=== PATIENT | male | born 1930 | race Caucasian/White ===

== ENCOUNTER 2016-07-20 10:56 | Emergency (ER) | payer MEDICARE ==
[~2016-07-20] VITALS: Ht 177.8 cm; Wt 56.7 kg
[~2016-07-20 10:56] MED LIST: ALBU8.5H2 INH; APIX5TAB PO; APIX5TAB2 PO; ASP81CT PO; ATOR10TA66 PO; ATRV10T; CEPH500C PO; CEPH500T PO; FURO20TA4 PO; LEVO100T7 PO; LISI-552 PO; LISI20TA PO; LSNP10T; LVT.05T; LVT.1T PO; METO-270 PO; METO25TA PO; MUPI15CR TP; MUPI22OI2 TP; PRCD5U PO; ROSU5TAB PO
[2016-07-20 11:35] LABS: BASOPHILS % (AUTO) 0 % (0-10); EOSINOPHILS # (AUTO) 0.1 10^3/uL (0.0-0.3); EOSINOPHILS % (AUTO) 1 % (0-10); LYMPHOCYTES # (AUTO) 1.2 X 10^3 (1.0-4.0); LYMPHOCYTES % (AUTO) 17 % (12-44); MEAN CORPUSCULAR HEMOGLOBIN 33 PG (25-34); MEAN CORPUSCULAR HGB CONC 33 G/DL (32-36); MEAN CORPUSCULAR VOLUME 99 FL (80-99); MEAN PLATELET VOLUME 12.3 FL (7.4-10.4); MONOCYTES % (AUTO) 14 % (0-12); NEUTROPHILS # (AUTO) 4.9 X 10^3 (1.8-7.8); NEUTROPHILS % (AUTO) 68 % (42-75); PLATELET COUNT 139 10^3/uL (130-400); WHITE BLOOD COUNT 7.2 10^3/uL (4.3-11.0)
[2016-07-20 11:46] LABS: ALANINE AMINOTRANSFERASE 26 U/L (0-55); ALBUMIN 3.6 G/DL (3.2-4.5); ANION GAP 10 MMOL/L (5-14); ASPARTATE AMINO TRANSFERASE 38 U/L (5-34); BLOOD UREA NITROGEN 19 MG/DL (7-18); BUN/CREATININE RATIO 19; CALCIUM 8.6 MG/DL (8.5-10.1); CARBON DIOXIDE 26 MMOL/L (21-32); CHLORIDE 110 MMOL/L (98-107); CREATININE SERUM 0.99 MG/DL (0.60-1.30); GFR ESTIMATED > 60; GLUCOSE 109 MG/DL (70-105); POTASSIUM 3.2 MMOL/L (3.6-5.0); SODIUM 146 MMOL/L (135-145); TOTAL PROTEIN 6.5 G/DL (6.4-8.2); hs C REACTIVE PROTEIN 0.44 MG/DL (0.00-0.50)
--- NOTE | 2016-07-20 12:02 | Diagnostic Imaging Report ---
Portable upright radiograph of the chest. INDICATION: Slurred speech. Confusion. FINDINGS: There is moderate cardiomegaly with pulmonary vascular congestion. There is bilateral tiny pleural effusion and small infiltrate or atelectasis in the right lung base. There is a pacemaker with two leads seen. The sternotomy wires are noted. IMPRESSION: Cardiomegaly with pulmonary vascular congestion. There is small atelectasis or infiltrate in the right lung base. Dictated by: Dictated on workstation # [id number]
[2016-07-20] MEDS ORDERED: LEVOFLOXACIN 500 MG TAB (LEVAQUIN) PO STA (12:17)
--- NOTE | 2016-07-20 12:17 | ED Neurological Problem ---
General Chief Complaint: Neuro-Stroke Like Symptoms Stated Complaint: SLURRED SPEECH, CONGESTION Nursing Triage Note: STATES PT HAD SLURRED SPEECH YESTERDAY WHICH TODAY HAS RESOLVED. ALSO C/O CONFUSION LAST NOC AND THIS MORNING. PT HAS "RATTLE" IN CHEST AND INCREASED WEAKNESS. Nursing Sepsis Screen: No Definite Risk (BETTY PENNY) History of Present Illness Time seen by provider: 11:55 Initial Comments Patient presents for confusion last night, and chest congestion noted today. His reports slightly increased confusion comport compared to his normal status. He is hard of hearing and does not have his hearing aids with him at this time. Timing/Duration: 24 hours Severity: mild Associated Symptoms: confusion fatigueNo fever/chills, No loss of consciousness, No nausea/vomiting, No numbness in legs/feet, No paresthesia, No ringing in ears, No slurred speech, No tingling in legs/feet, trouble walkingNo vision changes, No weakness (BETTY PENNY) Allergies and Home Medications Allergies Coded Allergies: No Known Drug Allergies (Verified , 06/12/08) Home Medications Albuterol Sulfate 18 Gm Hfa.aer.ad 10Days 1-2 PUFF IH Q6H Prescribed by: BETTY PENNY on 07/20/16 1405 Apixaban 5 Mg Tablet 5 MG PO BID (Reported) Aspirin 81 Mg Chew 81 MG PO HS (Reported) Atorvastatin Calcium 10 Mg Tablet 10 MG PO DAILY (Reported) Cephalexin 500 Mg Capsule 7Days 500 MG PO Q8H (Reported) FILLED 06/20/16 #21 FOR A 7 DAY THERAPY Furosemide 20 Mg Tablet 20 MG PO DAILY (Reported) Levofloxacin 500 Mg Tablet #7 500 MG PO DAILY Prescribed by: BETTY PENNY on 07/20/16 1405 Levothyroxine Sodium 100 Mcg Tablet 100 MCG PO DAILY (Reported) Lisinopril 20 Mg Tablet 20 MG PO DAILY (Reported) Metoprolol Succinate 25 Mg Tab.er.24h 25 MG PO DAILY (Reported) Mupirocin 22 Gm Oint...g. TP BID (Reported) Constitutional: see HPI malaise weakness Eyes: No Symptoms Reported See HPI Ears, Nose, Mouth, Throat: no symptoms reported see HPI Respiratory: see HPI cough (Productive cough, clear sputum per ) other ( reports "rattling") Cardiovascular: no symptoms reported see HPI Gastrointestinal: no symptoms reported see HPI Genitourinary: no symptoms reported see HPI Musculoskeletal: no symptoms reported see HPI Skin: no symptoms reported Psychiatric/Neurological: No Symptoms Reported See HPI Endocrine: No Symptoms Reported See HPI Hematologic/Lymphatic: No Symptoms Reported See HPI (BETTY PENNY) All Other Systems Reviewed Negative Unless Noted: Yes (BETTY PENNY) Past Mwyotpl-Nhqdfh-Wfrgbs Hx Patient Social History Alcohol Use: Denies Use Recreational Drug Use: No Smoking Status: Current Everyday Smoker Type Used: Cigarettes Recent Foreign Travel: No Contact w/Someone Who Travel: No Recent Infectious Disease Expo: No Recent Hopitalizations: Yes Physical Abuse Screen: No Sexual Abuse: No (BETTY PENNY) Immunizations Up To Date Tetanus Booster (TDap): Unknown PED Vaccines UTD: Yes Date of Pneumonia Vaccine: Mar 05, 2012 Date of Influenza Vaccine: Mar 16, 2016 (BETTY PENNY) Seasonal Allergies Seasonal Allergies: No (BETTY PENNY) Surgeries HX Surgeries: Yes (HEART BYPASS) Surgeries: Cardiac, CABG, Defibrillator, Pacemaker (BETTY PENNY) Respiratory Hx Respiratory Disorders: No Respiratory Disorders: COPD, Emphysema (BETTY PENNY) Cardiovascular Hx Cardiac Disorders: Yes (Tricuspid Valve Dz, Hx PVT, RBBB, SA Dysfunction) Cardiac Disorders: Atrial Fibrillation, Cardiomyopathy, Coronary Artery Disease , Heart Attack, High Cholesterol, Hypertension, Valvular Heart Disease (BETTY PENNY) Neurological Hx Neurological Disorders: Yes (Carotid Artery Occlus with CVA) Neurological Disorders: Dementia, Stroke (BETTY PENNY) Reproductive System Hx Reproductive Disorders: No Sexually Transmitted Disease: No HIV/AIDS: No (BETTY PENNY) Genitourinary Hx Genitourinary Disorders: No (BETTY PENNY) Gastrointestinal Hx Gastrointestinal Disorders: Yes Gastrointestinal Disorders: Flores's Esophagus, Esophagitis (BETTY PENNY) Musculoskeletal Hx Musculoskeletal Disorders: Yes (MELANOMA ON HIS TOE STAGE 3 ABOUT @ 20 YRS AGO) Musculoskeletal Disorders: Arthritis (BETTY PENNY) Endocrine Hx Endocrine Disorders: Yes Endocrine Disorders: Hypothyroidsim (BETTY PENNY) HEENT HX ENT Disorders: Yes HEENT Disorders: Cataract Loss of Vision: Denies Hearing Impairment: Hard of Hearing, Bilateral Hearing Aide (BETTY PENNY) Cancer Hx Cancer: Yes Cancer: Melanoma (BETTY PENNY) Psychosocial Hx Psychiatric Problems: No (probable dementia) (BETTY PENNY) Integumentary HX Skin/Integumentary Disorder: No (BETTY PENNY) Blood Transfusions Hx Blood Disorders: No Adverse Reaction to a Blood Tr: No (BETTY PENNY) Reviewed Nursing Assessment Reviewed/Agree w Nursing PMH: Yes (BETTY PENNY) Family Medical History Family Medial History: Alcoholism G8 BROTHER Cardiovascular disease 19 FATHER, Onset:40's - 50 Diabetes mellitus 19 MOTHER, Onset:40's - 50 Hypercholesterolemia 19 MOTHER Hypertension 19 FATHER 19 MOTHER Myocardial infarction 19 FATHER No Family History of: AIDS Abdominal aortic aneurysm Mcewen's disease Alzheimer's disease Aphasia Arthritis Asthma Cancer of mouth Cataracts Colon cancer Completed stroke Congenital disease Congenital heart disease Coronary thrombosis Cystic fibrosis Deafness or hearing loss Dementia Drug abuse Dysphasia Fibrocystic disease of breast Gastroenteritis Glaucoma Headache disorder Infertility Kidney disease Neoplasm Not obtainable due to adoption Osteoporosis Parkinson's disease Prostate cancer Psychosocial problem Respiratory disorder Seizure disorder Severe allergy Thyroid disease Tuberculosis Visual disorder (BETTY PENNY) Family Medial History: Alcoholism G8 BROTHER Cardiovascular disease 19 FATHER, Onset:40's - 50 Diabetes mellitus 19 MOTHER, Onset:40's - 50 Hypercholesterolemia 19 MOTHER Hypertension 19 FATHER 19 MOTHER Myocardial infarction 19 FATHER No Family History of: AIDS Abdominal aortic aneurysm Mcewen's disease Alzheimer's disease Aphasia Arthritis Asthma Cancer of mouth Cataracts Colon cancer Completed stroke Congenital disease Congenital heart disease Coronary thrombosis Cystic fibrosis Deafness or hearing loss Dementia Drug abuse Dysphasia Fibrocystic disease of breast Gastroenteritis Glaucoma Headache disorder Infertility Kidney disease Neoplasm Not obtainable due to adoption Osteoporosis Parkinson's disease Prostate cancer Psychosocial problem Respiratory disorder Seizure disorder Severe allergy Thyroid disease Tuberculosis Visual disorder (GERALD SHOOK MD) Physical Exam Vital Signs Vital Sign - Last 12Hours 07/20/16 07/20/16 11:00 11:05 Temp 98.0 Pulse 74 Resp 16 B/P 135/85 Pulse Ox 94 O2 Delivery Room Air O2 Flow Rate 2 (GERALD SHOOK MD) Vital Signs Capillary Refill : Less Than 3 Seconds (BETTY PENNY) General Appearance: WD/WN no apparent distress HEENT: PERRL/EOMI normal ENT inspection TMs normal pharynx normal Neck: non-tender full range of motion normal inspectionNo lymphadenopathy (R) , No lymphadenopathy (L) Respiratory: chest non-tender no respiratory distress rhonchi (bilat throughout lung naidu, Right lower lobe greatest) Cardiovascular: normal peripheral pulsesNo no edema, no JVD no murmur extra beats other (2+ edema to bilat feet, none present in ankles) Gastrointestinal: normal bowel sounds non tender soft no organomegalyNo rebound, No tenderness Neurologic/Psychiatric: service tester II-XII nml as tested (Grossly intact, as able to assess, difficult to follow directions secondary to [place]) no motor/sensory deficits alert normal mood/affect Crainal Nerves: No normal hearing ([place], hearing aids not with patient), normal speech PERRLNo facial asymmetry, No facial droop, hearing deficit (R) hearing deficit (L)No tongue deviation to R, No tongue deviation to L Motor/Sensory: no motor deficit no sensory deficit no pronator drift Skin: normal color warm/dry Lymphatic: no adenopathy (ZOHAIB,BETTY INFORMATICS APPLICATION ANALYST) Progress/Results/Core Measures Results/Orders Lab Results Laboratory Tests Test 07/20/16 11:10 07/20/16 11:24 07/20/16 13:24 07/20/16 13:25 Range/Units Alanine Aminotransferase (ALT/SGPT) 26 0-55 U/L Albumin 3.6 3.2-4.5 G/DL Alkaline Phosphatase 64 40-136 U/L Anion Gap 10 5-14 MMOL/L Aspartate Amino Transf (AST/SGOT) 38 H 5-34 U/L B-Type Natriuretic Peptide 2100.0 H <100.0 PG/ML BUN/Creatinine Ratio 19 Basophils # (Auto) 0.0 0.0-0.1 10^3/uL Basophils (%) (Auto) 0 0-10 % Blood Urea Nitrogen 19 H 7-18 MG/DL C-Reactive Protein High Sensitivity 0.44 0.00-0.50 MG/DL Calcium Level 8.6 8.5-10.1 MG/DL Carbon Dioxide Level 26 21-32 MMOL/L Chloride Level 110 H 98-107 MMOL/L Creatinine 0.99 0.60-1.30 MG/DL Eosinophils # (Auto) 0.1 0.0-0.3 10^3/uL Eosinophils (%) (Auto) 1 0-10 % Estimat Glomerular Filtration Rate > 60 Glucose Level 109 H 70-105 MG/DL Hematocrit 42 40-54 % Hemoglobin 13.8 13.3-17.7 G/DL Lymphocytes # (Auto) 1.2 1.0-4.0 X 10^3 Lymphocytes (%) (Auto) 17 12-44 % Mean Corpuscular Hemoglobin 33 25-34 PG Mean Corpuscular Hemoglobin Concent 33 32-36 G/DL Mean Corpuscular Volume 99 80-99 FL Mean Platelet Volume 12.3 H 7.4-10.4 FL Monocytes # (Auto) 1.0 0.0-1.0 X 10^3 Monocytes (%) (Auto) 14 H 0-12 % Neutrophils # (Auto) 4.9 1.8-7.8 X 10^3 Neutrophils (%) (Auto) 68 42-75 % Platelet Count 139 130-400 10^3/uL Potassium Level 3.2 L 3.6-5.0 MMOL/L Red Blood Count 4.20 L 4.35-5.85 10^6/uL Red Cell Distribution Width 15.0 H 10.0-14.5 % Sodium Level 146 H 135-145 MMOL/L Total Bilirubin 1.0 0.1-1.0 MG/DL Total Protein 6.5 6.4-8.2 G/DL White Blood Count 7.2 4.3-11.0 10^3/uL Lactic Acid Level 2.1 *H 0.9 0.5-2.0 MMOL/L Urine Bacteria NEGATIVE /HPF Urine Bilirubin NEGATIVE NEGATIVE Urine Casts NONE /LPF Urine Clarity CLEAR Urine Color YELLOW Urine Crystals NONE /LPF Urine Culture Indicated NO Urine Glucose (UA) NEGATIVE NEGATIVE Urine Ketones NEGATIVE NEGATIVE Urine Leukocyte Esterase NEGATIVE NEGATIVE Urine Mucus NEGATIVE /LPF Urine Nitrite NEGATIVE NEGATIVE Urine Protein NEGATIVE NEGATIVE Urine RBC 0-2 /HPF Urine RBC (Auto) NEGATIVE NEGATIVE Urine Specific [place] 1.010 L 1.016-1.022 Urine Squamous Epithelial Cells RARE /HPF Urine Urobilinogen NORMAL NORMAL MG/DL Urine WBC NONE /HPF Urine pH 7 5-9 (GERALD SHOOK MD) Micro Results Microbiology 07/20/16 Blood Culture - Final, Complete No growth 07/20/16 Blood Culture - Final, Complete No growth 07/20/16 Influenza Types A,B Antigen (BOY) - Final, Complete (GERALD SHOOK MD) Vital Signs/I&O Vital Sign - Last 12Hours 07/20/16 07/20/16 07/20/16 07/20/16 11:00 11:05 13:39 14:25 Temp 98.0 Pulse 74 63 Resp 16 18 B/P 135/85 Pulse Ox 94 94 95 94 O2 Delivery Room Air Nasal Cannula Nasal Cannula O2 Flow Rate 2 2 (GERALD SHOOK MD) Blood Pressure Mean: 102 Progress Note : Time: 11:55 Progress Note Initial evaluation completed, labs ordered and CXR. 1300 Re-evaluation, continues to have rhonchi, will complete DuoNeb tx and re- evaluate. 1345 Lungs essentially unchanged after treatment. Discussed with the patient and his , he does not wish to be admitted to the hospital. His feel she can care for him appropriately at home. He is a smoker, and wishes return home or he can smoke, discussed this is a risk factor and potentially can make his pneumonia worse. He verbalized understanding. Discussed patient with Dr. Ying by phone, he will see him later this week for follow up and they will return to ED if s/s worsen. (BETTY PENNY) ECG Comment EKG : Rhythm: A Fib/Flutter Intervals: Normal, QT (492) Intervals ORSD 178; QT 492; QTc 531. [place] QRS -62; T 118 ECG Comparisson: Unchanged ECG Impression: Atrial Fibrillation (Ventricular paced complexes) Comment Reviewed with Dr. Su, agreed with interpretation. (BETTY PENNY) EKG : EKG Time: 11:09 Rate: 70 Comment 07/10/16. Atrial sensed-ventricular paced rhythm. Unchanged from previous. (GERALD SHOOK MD) Diagnostic Imaging Diagonstic Imaging: Xray Plain Films/CT/US/NM/MRI: chest Comments NAME: AFIA CALI [facility] REC#: [id number] PT STATUS: REG ER : 1930 PHYSICIAN: EMILY NANCE MD ADMIT DATE: 07/20/16/ER Draft Date of Exam:07/20/16 CHEST 1 VIEW, AP/PA ONLY Portable upright radiograph of the chest. INDICATION: Slurred speech. Confusion. FINDINGS: There is moderate cardiomegaly with pulmonary vascular congestion. There is bilateral tiny pleural effusion and small infiltrate or atelectasis in the right lung base. There is a pacemaker with two leads seen. The sternotomy wires are noted. IMPRESSION: Cardiomegaly with pulmonary vascular congestion. There is small atelectasis or infiltrate in the right lung base. Dictated on workstation # [id number] Dict: 07/20/16 1155 Trans: 07/20/16 1201 KB [id number] Interpreted by: SHANELLE DE PAZ MD Electronically signed by: Reviewed: Reviewed by Me (BETTY PENNY) Departure Impression Impression: Primary Impression: Pneumonia Qualified Code: J18.1 - Lobar pneumonia, unspecified organism Disposition: HOME, SELF-CARE Condition: Stable Departure-Patient Inst. Decision time for Depature: 13:50 (BETTY PENNY) Referrals: AARON YING DO (PCP/Family) Primary Care Physician Patient Instructions: Community-Acquired Pneumonia, Adult (DC) Scripts Albuterol Sulfate (Ventolin Hfa)18 Gm Hfa.aer.ad1-2 Puff IH Q6H Congestion 10 Days Ref 0 Prov:BETTY PENNY 07/20/16 Levofloxacin (Levaquin)500 Mg [id number] Mg PO DAILY #7 TAB Ref 0 Prov:BETTY PENNY 07/20/16 BETTY PENNY Jul 20, 2016 12:16 GERALD SHOOK MD Jul 26, 2016 08:01
[2016-07-20] MEDS ORDERED: RT-ALBUTEROL SULF 2.5 MG/3 ML PRE-MIX VIAL ONE (13:25)
[2016-07-20] MEDS ORDERED: RT-ALBUTEROL/IPRATROPIUM 3 ML (DUONEB) VIAL INH ONE (13:30)
[2016-07-20 13:33] LABS: BILIRUBIN,URINE NEGATIVE (NEGATIVE); KETONES,URINE NEGATIVE (NEGATIVE); LEUKOCYTE ESTERASE ,URINE NEGATIVE (NEGATIVE); NITRITE,URINE NEGATIVE (NEGATIVE); PH,URINE 7 (5-9); PROTEIN,URINE NEGATIVE (NEGATIVE); UROBILINOGEN,URINE NORMAL (NORMAL)
[2016-07-20 13:41] LABS: SQUAMOUS EPITHELIAL CELL,UR RARE /HPF
[2016-07-20] MEDS ORDERED: LEVO500T2 PO (14:05)
[2016-07-20] MEDS ORDERED: RT-ALBUINH IH (14:05)
[2016-07-20 14:25] VITALS: BP 147/85
== END 2016-07-20 14:25 | disposition home or self-care (01) ==
LOC: EDUNIT# 10:56 → ER 10:58
DX: J18.9 Pneumonia, unspecified organism (principal); I48.2 Chronic atrial fibrillation; I25.10 Atherosclerotic heart disease of native coronary artery without angina pectoris; I10 Essential (primary) hypertension; I51.7 Cardiomegaly; F17.210 Nicotine dependence, cigarettes, uncomplicated; Z79.01 Long term (current) use of anticoagulants; Z79.82 Long term (current) use of aspirin; Z79.899 Other long term (current) drug therapy; Z86.73 Personal history of transient ischemic attack (TIA), and cerebral infarction without residual deficits; Z95.810 Presence of automatic (implantable) cardiac defibrillator
CPT/HCPCS: 36415; 71010; 80053; 81000; 83605; 83880; 85025; 86141; 87040; 87804; 93005; 93041; 94640

== ENCOUNTER → 2016-07-27 | Outpatient (CLI) | payer MEDICARE ==
[~2016-07-27] MED LIST changes: +LEVO500T2 PO; +RT-ALBUINH IH
--- NOTE | 2016-07-27 12:26 | Diagnostic Imaging Report ---
INDICATION: Fall with trauma to the head. Soft tissue hematoma. TECHNIQUE: Routine non contrast-enhanced axial images were obtained from the skull base to the vertex. COMPARISON: 11/11/2015. FINDINGS: The ventricles and cortical sulci are diffusely prominent, compatible with age-related volume loss. There are confluent areas of abnormal, low attenuation in the periventricular white matter. This is consistent with chronic small vessel ischemic changes. There is no midline shift or mass-effect. No acute intra-axial hemorrhage is seen. There are no abnormal areas of increased or decreased density to suggest acute hemorrhage or edema. No extra-axial masses or collections are present. The bony calvarium is intact. The visualized paranasal sinuses are unremarkable. The mastoid air cells are clear. IMPRESSION: 1. No acute intracranial abnormality. No CT evidence of mass, acute infarct or intracranial hemorrhage. 2. Chronic small vessel ischemic changes in the deep white matter. Dictated by: Dictated on workstation # [id number]
== END ==
LOC: RAD 11:53
PROVIDERS: ATTEND Family Medicine
DX: S09.90XA Unspecified injury of head, initial encounter (principal); W18.00XA Striking against unspecified object with subsequent fall, initial encounter; Y99.8 Other external cause status; Z79.01 Long term (current) use of anticoagulants
CPT/HCPCS: 70450

== ENCOUNTER → 2016-07-27 | Outpatient (CLI) | payer MEDICARE ==
--- NOTE | 2016-07-27 09:48 | Diagnostic Imaging Report ---
Clinical indication: Patient with pneumonia. Exam: Chest x-ray PA and lateral views. Comparisons: Chest x-ray dated 07/20/2016. Findings: Lungs/pleura: Stable atelectasis versus infiltrate in the middle lobe/right lung base region. There are slightly hyperinflated lungs, increased retrosternal clear space, and flattened hemidiaphragms which can be seen with COPD changes. Minimal atelectasis or scarring in the left lung base. There is no pneumothorax. There is no pleural effusion. Mediastinum: Unremarkable. Pulmonary vasculature: There is stable mild pulmonary vascular congestion. Heart: Stable cardiomegaly. Again seen cardiac pacemaker/AICD overlying the chest. There are stable postoperative changes to the chest consistent with CABG with sternotomy wires and mediastinal clips. Bones/extrathoracic soft tissue: There are mildly hypertrophic degenerative osteophytes scattered throughout the thoracic spine. There is levoscoliosis of the lumbar spine. Impression: 1: Stable middle lobe/right lung base atelectasis versus infiltrate. 2: Mild left lung base atelectasis or scarring. 3: Stable cardiomegaly with mild pulmonary vascular congestion. 4: COPD lung changes. Dictated by: Dictated on workstation # [id number]
[2016-07-27 09:58] LABS: BASOPHILS % (AUTO) 0 % (0-10); EOSINOPHILS # (AUTO) 0.1 10^3/uL (0.0-0.3); EOSINOPHILS % (AUTO) 2 % (0-10); LYMPHOCYTES # (AUTO) 1.5 X 10^3 (1.0-4.0); LYMPHOCYTES % (AUTO) 20 % (12-44); MEAN CORPUSCULAR HEMOGLOBIN 34 PG (25-34); MEAN CORPUSCULAR HGB CONC 34 G/DL (32-36); MEAN CORPUSCULAR VOLUME 98 FL (80-99); MEAN PLATELET VOLUME 10.4 FL (7.4-10.4); MONOCYTES # (AUTO) 0.9 X 10^3 (0.0-1.0); MONOCYTES % (AUTO) 11 % (0-12); NEUTROPHILS # (AUTO) 5.1 X 10^3 (1.8-7.8); NEUTROPHILS % (AUTO) 67 % (42-75); PLATELET COUNT 178 10^3/uL (130-400); RED CELL DISTRIBUTION WIDTH 14.8 % (10.0-14.5); WHITE BLOOD COUNT 7.7 10^3/uL (4.3-11.0)
[2016-07-27 10:04] LABS: ANION GAP 9 MMOL/L (5-14); BLOOD UREA NITROGEN 16 MG/DL (7-18); BUN/CREATININE RATIO 15; CALCIUM 8.2 MG/DL (8.5-10.1); CARBON DIOXIDE 28 MMOL/L (21-32); CHLORIDE 106 MMOL/L (98-107); CREATININE SERUM 1.07 MG/DL (0.60-1.30); GFR ESTIMATED > 60; GLUCOSE 93 MG/DL (70-105); POTASSIUM 2.9 MMOL/L (3.6-5.0); SODIUM 143 MMOL/L (135-145)
== END ==
LOC: RAD 09:17
PROVIDERS: ATTEND Family Medicine
DX: J18.9 Pneumonia, unspecified organism (principal); I50.9 Heart failure, unspecified; S09.90XA Unspecified injury of head, initial encounter; W18.00XA Striking against unspecified object with subsequent fall, initial encounter; Y99.8 Other external cause status; Z79.01 Long term (current) use of anticoagulants
CPT/HCPCS: 36415; 71020; 80048; 83880; 85025

== ENCOUNTER → 2016-07-29 | Outpatient (CLI) | payer MEDICARE ==
[2016-07-29 16:01] LABS: CALCIUM 8.9 MG/DL (8.5-10.1); CREATININE SERUM 1.15 MG/DL (0.60-1.30); POTASSIUM 3.1 MMOL/L (3.6-5.0)
== END ==
LOC: LAB 15:15
PROVIDERS: ATTEND Family Medicine
DX: I50.9 Heart failure, unspecified (principal)
CPT/HCPCS: 36415; 80048; 83880

== ENCOUNTER → 2016-08-27 | Outpatient (CLI) | payer MEDICARE ==
--- OUTSIDE RECORDS SUMMARY | 2016-08-27 13:10 | XMS REPORT | Continuity of Care Document ---
Author Author [facility] Organization [facility] Address Unknown Phone Unavailable Allergies Active Description Code Type Severity Reaction Onset Reported/Identified Relationship to Patient Clinical Status Yes No Known Drug Allergies [id number] Drug Allergy Unknown N/ A 06/12/2008 Medications Problems Date Dx Coded Attending Type Code Diagnosis Diagnosed By 08/27/2014 Ot 786.3 08/27/2014 Ot 305.1 08/27/2014 Ot 492.8 08/27/2014 Ot 593.9 08/27/2014 Ot 786.3 08/27/2014 Ot 786.3 08/27/2014 Ot V72.81 08/27/2014 Ot V74.8 08/27/2014 Ot 305.1 08/27/2014 Ot V10.82 08/27/2014 Ot V45.81 08/27/2014 Ot V58.66 08/27/2014 Ot V58.69 08/27/2014 Ot V67.09 08/27/2014 Ot V10.82 08/27/2014 Ot 433.10 08/27/2014 Ot 305.1 08/27/2014 Ot 412 08/27/2014 Ot V10.82 08/27/2014 Ot V45.81 08/27/2014 Ot V58.66 08/27/2014 Ot V58.69 08/27/2014 Ot V67.09 08/27/2014 Ot 414.00 08/27/2014 Ot 305.1 08/27/2014 Ot 412 08/27/2014 Ot V10.82 08/27/2014 Ot V45.81 08/27/2014 Ot V58.66 08/27/2014 Ot V58.69 08/27/2014 Ot V67.09 08/27/2014 Ot 305.1 08/27/2014 Ot 412 08/27/2014 Ot V10.82 08/27/2014 Ot V45.81 08/27/2014 Ot V58.66 08/27/2014 Ot V58.69 08/27/2014 Ot V67.09 08/27/2014 VLAD GREEN, SERGIO Donny Ot 305.1 08/27/2014 VLAD GREEN, SERGIO K Ot 412 08/27/2014 VLAD GREEN, SERGIO Hines Ot V10.82 08/27/2014 VLAD GREEN, SERGIO Hines Ot V45.81 08/27/2014 VLAD GREEN, SERGIO Hines Ot V58.66 08/27/2014 VLAD GREEN, SERGIO Hines Ot V58.69 08/27/2014 VLAD GREEN, SERGIO Donny Ot V67.09 08/27/2014 VLAD GREEN, SERGIO Donny Ot 305.1 08/27/2014 VLAD GREEN, SERGIO Donny Ot 412 08/27/2014 VLAD GREEN, SERGIO Hines Ot V10.82 08/27/2014 VLAD GREEN, SERGIO Hines Ot V45.81 08/27/2014 VLAD GREEN, SERGIO Hines Ot V58.66 08/27/2014 VLAD GREEN, SERGIO Hines Ot V58.69 08/27/2014 VLAD GREEN, SERGIO Hines Ot V67.09 08/27/2014 GELLENDER DO, AARON A Ot 336.8 08/27/2014 GELLENDER DO, AARON A Ot 719.45 08/27/2014 GELLENDER DO, AARON A Ot 722.52 08/27/2014 GELLENDER DO, AARON A Ot 724.5 08/27/2014 GELLENDER DO, AARON A Ot 729.5 08/27/2014 GELLENDER DO, AARON A Ot V15.88 08/27/2014 BAIMA, ADALBERTO L DRILL FOREMAN Ot 401.9 08/27/2014 BAIMA, ADALBERTO L DRILL FOREMAN Ot 414.00 08/27/2014 BAIMA, ADALBERTO L DRILL FOREMAN Ot 414.8 08/27/2014 BAIMA, ADALBERTO L DRILL FOREMAN Ot 426.4 08/27/2014 BAIMA, ADALBERTO L DRILL FOREMAN Ot 427.69 08/27/2014 BAIMA, ADALBERTO L DRILL FOREMAN Ot 496 08/27/2014 BAIMA, ADALBERTO L DRILL FOREMAN Ot 786.09 08/27/2014 PRIETO, ADALBERTO L DRILL FOREMAN Ot V45.02 08/27/2014 VLAD GREEN, SERGIO Donny Ot 305.1 08/27/2014 VLAD GREEN, SERGIO Donny Ot 412 08/27/2014 VLAD GREEN, SERGIO Hines Ot V10.82 08/27/2014 VLAD GREEN, SERGIO Donny Ot V45.81 08/27/2014 VLAD GREEN, SERGIO Hines Ot V58.66 08/27/2014 VLAD GREEN, SERGIO Hines Ot V58.69 08/27/2014 VLAD GREEN, SERGIO Hines Ot V67.09 09/27/2014 VLAD GREEN, SERGIO Hines Ot 305.1 09/27/2014 VLAD GREEN, SERGIO Hines Ot 412 09/27/2014 VLAD GREEN, SERGIO Hines Ot V10.82 09/27/2014 VLAD GREEN, SERGIO Hines Ot V45.81 09/27/2014 VLAD GREEN, SERGIO Hines Ot V58.66 09/27/2014 VLAD GREEN, SERGIO Hines Ot V58.69 09/27/2014 VLAD GREEN, SERGIO Hines Ot V67.09 10/31/2014 Ot 244.9 10/31/2014 Ot 272.4 10/31/2014 Ot 305.1 10/31/2014 Ot 401.9 10/31/2014 Ot 414.00 10/31/2014 Ot 414.8 10/31/2014 Ot 426.4 10/31/2014 Ot 427.31 10/31/2014 Ot 427.69 10/31/2014 Ot 427.81 10/31/2014 Ot 447.9 10/31/2014 Ot 496 10/31/2014 Ot V10.82 10/31/2014 Ot V45.02 10/31/2014 Ot 780.97 01/29/2015 DEONNA LAIRD AARON Aniceto Ot 244.9 HYPOTHYROIDISM NOS 01/29/2015 AARON YING DO Ot 272.0 PURE HYPERCHOLESTEROLEM 01/29/2015 AARON YING DO Ot 272.4 HYPERLIPIDEMIA NEC/NOS 01/29/2015 AARON YING DO Ot 294.20 DEMENTIA, UNSPECIFIED, WITHOUT BEHAVIORA 01/29/2015 AARON YING DO Ot 305.1 TOBACCO USE DISORDER 01/29/2015 AARON YING DO Ot 389.9 HEARING LOSS NOS 01/29/2015 AARON YING DO Ot 397.0 TRICUSPID VALVE DISEASE 01/29/2015 AARON YING DO Ot 401.9 HYPERTENSION NOS 01/29/2015 AARON YING DO Ot 412 OLD MYOCARDIAL INFARCT 01/29/2015 AARON YING DO Ot 414.00 CORON ATHEROSCLER NOS TYPE VESSEL, NATIV 01/29/2015 AARON YING DO Ot 414.8 CHR ISCHEMIC HRT DIS NEC 01/29/2015 DEONNA LAIRD, AARON Moreland Ot 427.81 SINOATRIAL NODE DYSFUNCT 01/29/2015 DEONNA LAIRD, AARON Moreland Ot 428.0 CONGESTIVE HEART FAILURE NOS 01/29/[facility] Moreland Ot 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 01/29/2015 [facility] Moreland Ot 496 CHR AIRWAY OBSTRUCT NEC 01/29/2015 DEONNA LAIRD, AARON [place] Ot 780.79 OTH MALAISE FATIGUE 01/29/[facility] More[facility] Ot V10.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 01/29/2015 [facility], AARON Moreland Ot V11.8 HX-MENTAL DISORDER NEC 01/29/2015 [facility] , AARON Moreland Ot V12.54 PERSONAL HX OF TIA, CEREBRAL INFARCTION 01/29/2015 [facility], AARON Moreland Ot V12.79 PERSONAL HISTORY OTH SPEC DIGESTIVE SYST 01/29/2015 DEONNA LAIRD, AARON Moreland Ot V15.88 HISTORY OF FALL 01/29/2015 [facility] More[place] Ot V45.02 AUTO IMPLANTABLE CARDIAC DEFIBRILLATOR I 01/29/2015 [facility] AARON LAIRD Ot 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 BYPASS 05/27/2015 VLAD GREEN, SERGIO Hines Ot E03.9 05/27/2015 VLAD GREEN, SERGIO Hines Ot E78.5 05/27/2015 VLAD GREEN, SERGIO Hines Ot F17.210 05/27/2015 VLAD GREEN, SERGIO Hines Ot I51.9 05/27/2015 VLAD GREEN, SERGIO Hines Ot J44.9 05/27/2015 VLAD GREEN, SERGIO Hines Ot Z08 05/27/2015 VLAD GREEN, SERGIO Hines Ot Z79.01 05/27/2015 VLAD GREEN, SERGIO Hines Ot Z79.899 05/27/2015 VLAD GREEN, SERGIO Hines Ot Z85.820 05/27/2015 VLAD GREEN, SERGIO Hines Ot Z95.810 06/06/2015 VLAD GREEN, SERGIO Hines Ot E03.9 06/06/2015 VLAD GREEN, SERGIO Hines Ot E78.5 06/06/2015 VLAD GREEN, SERGIO Hines Ot F17.210 06/06/2015 VLAD GREEN, SERGIO Hines Ot I51.9 06/06/2015 VLAD GREEN, SERGIO Hines Ot J44.9 06/06/2015 VLAD GREEN, SERGIO Hines Ot Z08 06/06/2015 VLAD GREEN, SERGIO Donny Ot Z79.01 06/06/2015 VLAD GREEN, SERGIO Hines Ot Z79.899 06/06/2015 VLAD GREEN, SERGIO Hines Ot Z85.820 06/06/2015 VLAD GREEN, SERGIO Hines Ot Z95.810 07/10/2015 VLAD GREEN, SERGIO Donny Ot E03.9 HYPOTHYROIDISM, UNSPECIFIED 07/10/2015 SERGIO CHU MD Ot E78.5 HYPERLIPIDEMIA, UNSPECIFIED 07/10/2015 VLAD GREEN, SERGIO Donny Ot F17.210 NICOTINE DEPENDENCE, CIGARETTES, UNCOMPL 07/10/2015 VLAD GREEN, SERGIO Donny Ot I51.9 HEART DISEASE, UNSPECIFIED 07/10/2015 VLAD GREEN, SERGIO Donny Ot J44.9 CHRONIC OBSTRUCTIVE PULMONARY DISEASE, U 07/10/2015 VLAD GREEN, SERGIO Donny Ot Z08 ENCNTR FOR FOLLOW-UP EXAM AFTER TRTMT FO 07/10/2015 VLAD GREEN, SERGIO Donny Ot Z79.01 FOREST FIREFIGHTER (CURRENT) USE OF ANTICOAGULANT 07/10/2015 VLAD GREEN, SERGIO Donny Ot Z79.899 OTHER FOREST FIREFIGHTER (CURRENT) DRUG THERAPY 07/10/2015 VLAD GREEN, SERGIO Hines Ot Z85.820 PERSONAL HISTORY OF MALIGNANT MELANOMA O 07/10/2015 VLAD GREEN, SERGIO Hines Ot Z95.810 PRESENCE OF AUTOMATIC (IMPLANTABLE) CARD 09/17/2015 GELLENDER DO, AARON Moreland Ot R41.0 09/17/2015 GELLENDER DO, AARON Moreland Ot S09.90XA 09/17/2015 GELLENDER DO, AARON Moreland Ot X58.XXXA 09/17/2015 GELLENDER DO, AARON Moreland Ot Y99.8 10/08/2015 GELLENDER DO, AARON Aniceto Ot R41.0 10/08/2015 GELLENDER DO, AARON Aniceto Ot S09.90XA 10/08/2015 GELLENDER DO, AARON A Ot X58.XXXA 10/08/2015 GELLENDER DO, AARON Moreland Ot Y99.8 10/21/2015 GELLENDER DO, AARON Moreland Ot R41.0 DISORIENTATION, UNSPECIFIED 10/21/2015 GELLENDER DO, AARON Moreland Ot S09.90XA UNSPECIFIED INJURY OF HEAD, INITIAL ENCO 10/21/2015 GELLENDER DO, AARON Aniceto Ot X58.XXXA EXPOSURE TO OTHER SPECIFIED FACTORS , INI 10/21/2015 AARON YING DO Ot Y99.8 OTHER EXTERNAL CAUSE STATUS 11/11/2015 MARYAM LACIE LAIRD Ot F03.90 UNSPECIFIED DEMENTIA WITHOUT BEHAVIORAL 11/11/2015 MANVEL LACIE LAIRD Ot 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 11/28/2015 GELLENDER DOAARON Ot E78.6 LIPOPROTEIN DEFICIENCY 11/28/2015 GELLENDER DO, AARON Moreland Ot E03.9 HYPOTHYROIDISM, UNSPECIFIED 11/28/2015 GELLENDER DO, AARON Moreland Ot J44.9 CHRONIC OBSTRUCTIVE PULMONARY DISEASE , U 11/28/2015 GELLENDER DO, AARON Moreland Ot R06.02 SHORTNESS OF BREATH 12/03/2015 RONALDLENDER DO, AARON Moreland Ot E03.9 HYPOTHYROIDISM, UNSPECIFIED 12/03/2015 GELLENDER DO, AARON Moreland Ot J44.9 CHRONIC OBSTRUCTIVE PULMONARY DISEASE , U 12/03/2015 GELLENDER DO, AARON Moreland Ot R06.02 SHORTNESS OF BREATH 12/19/2015 GELLENDER DO, AARON Moreland Ot E03.9 HYPOTHYROIDISM, UNSPECIFIED 12/19/2015 GELLENDER DO, AARON Moreland Ot J44.9 CHRONIC OBSTRUCTIVE PULMONARY DISEASE , U 12/19/2015 GELLENDER DO, AARON Moreland Ot R06.02 SHORTNESS OF BREATH 12/27/2015 ELEAZARDER DOAARON Ot I50.9 HEART FAILURE, UNSPECIFIED 12/27/2015 GELLENDER DO, AARON Moreland Ot J18.9 PNEUMONIA, UNSPECIFIED ORGANISM 12/27/2015 GELLENDER DO, AARON Moreland Ot J44.9 CHRONIC OBSTRUCTIVE PULMONARY DISEASE , U 01/02/2016 RONALDLENDER DO, AARON Moreland Ot E03.9 HYPOTHYROIDISM, UNSPECIFIED 01/02/2016 GELLENDER DO, AARON Moreland Ot J44.9 CHRONIC OBSTRUCTIVE PULMONARY DISEASE , U 01/02/2016 GELLENDER DO, AARON Moreland Ot R06.02 SHORTNESS OF BREATH 01/08/2016 RONALDLENDER DO, AARON Moreland Ot I50.9 HEART FAILURE, UNSPECIFIED 03/18/2016 Ot 414.00 CORON ATHEROSCLER NOS TYPE VESSEL, NATIV 03/18/2016 Ot 305.1 TOBACCO USE DISORDER 03/18/2016 Ot 412 OLD MYOCARDIAL INFARCT 03/18/2016 Ot V10.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 03/18/2016 Ot 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 BYPASS 03/18/2016 Ot V58.66 LONG-TERM (CURRENT) USE OF ASPIRIN 03/18/2016 Ot V58.69 OTH MED,LT,CURRENT USE 03/18/2016 Ot V67.09 SURGERY FOLLOW-UP, OTHER SURGERY 03/18/2016 Ot 305.1 TOBACCO USE DISORDER 03/18/2016 Ot 412 OLD MYOCARDIAL INFARCT 03/18/2016 Ot V10.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 03/18/2016 Ot 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 BYPASS 03/18/2016 Ot V58.66 LONG-TERM (CURRENT) USE OF ASPIRIN 03/18/2016 Ot V58.69 OTH MED,LT,CURRENT USE 03/18/2016 Ot V67.09 SURGERY FOLLOW-UP, OTHER SURGERY 03/18/2016 VLAD GREEN, SERGIO Hines Ot 305.1 TOBACCO USE DISORDER 03/18/2016 SERGIO CHU MD Ot 412 OLD MYOCARDIAL INFARCT 03/18/2016 SERGIO CHU MD Ot V10.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 03/18/2016 SERGIO CHU MD Ot 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 BYPASS 03/18/2016 SERGIO CHU MD Ot V58.66 LONG-TERM (CURRENT) USE OF ASPIRIN 03/18/2016 SERGIO CHU MD Ot V58.69 OTH MED,LT,CURRENT USE 03/18/2016 SERGIO CHU MD Ot V67.09 SURGERY FOLLOW-UP, OTHER SURGERY 03/18/2016 VLAD GREEN SERGIO Donny Ot 305.1 TOBACCO USE DISORDER 03/18/2016 SERGIO CHU MD Ot 412 OLD MYOCARDIAL INFARCT 03/18/2016 SERGIO CHU MD Ot V10.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 03/18/2016 SERGIO CHU MD Ot 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 BYPASS 03/18/2016 SERGIO CHU MD Ot V58.66 LONG-TERM (CURRENT) USE OF ASPIRIN 03/18/2016 SERGIO CHU MD Ot V58.69 OTH MED,LT,CURRENT USE 03/18/2016 SERGIO CHU MD Ot V67.09 SURGERY FOLLOW-UP, OTHER SURGERY 03/18/2016 AARON YING DO Ot 336.8 MYELOPATHY NEC 03/18/2016 AARON YING DO Ot 719.45 JOINT PAIN-PELVIS 03/18/2016 AARON YING DO Ot 722.52 LUMB/LUMBOSAC DISC DEGEN 03/18/2016 AARON YING DO Ot 724.5 BACKACHE NOS 03/18/2016 AARON YING DO Ot 729.5 PAIN IN LIMB 03/18/2016 AARON YING DO Ot V15.88 HISTORY OF FALL 03/18/2016 ADALBERTO MOREAU DRILL FOREMAN Ot 401.9 HYPERTENSION NOS 03/18/2016 ADALBERTO MOREAU DRILL FOREMAN Ot 414.00 CORON ATHEROSCLER NOS TYPE VESSEL, NATIV 03/18/2016 ADALBERTO MOREAU DRILL FOREMAN Ot 414.8 CHR ISCHEMIC HRT DIS NEC 03/18/2016 ADALBERTO MOREAU DRILL FOREMAN Ot 426.4 RT BUNDLE BRANCH BLOCK 03/18/2016 ADALBERTO MOREAU DRILL FOREMAN Ot 427.69 PREMATURE BEATS NEC 03/18/2016 ADALBERTO MOREAU DRILL FOREMAN Ot 496 CHR AIRWAY OBSTRUCT NEC 03/18/2016 ADALBERTO MOREAU DRILL FOREMAN Ot 786.09 RESPIRATORY ABNORM NEC 03/18/2016 ADALBERTO MOREAU DRILL FOREMAN Ot V45.02 AUTO IMPLANTABLE CARDIAC DEFIBRILLATOR I 03/18/2016 VLAD GREEN, SERGIO Hines Ot 305.1 TOBACCO USE DISORDER 03/18/2016 VLAD GREEN, SERGIO Hines Ot 412 OLD MYOCARDIAL INFARCT 03/18/2016 VLAD GREEN, SERGIO Hines Ot V10.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 03/18/2016 VLAD GREEN, SERGIO Hines Ot 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 BYPASS 03/18/2016 VLAD GREEN, SERGIO Hines Ot V58.66 LONG-TERM (CURRENT) USE OF ASPIRIN 03/18/2016 VLAD GREEN, SERGIO Hines Ot V58.69 OTH MED,LT,CURRENT USE 03/18/2016 VLAD GREEN, SERGIO Hines Ot V67.09 SURGERY FOLLOW-UP, OTHER SURGERY 03/18/2016 Ot 244.9 HYPOTHYROIDISM NOS 03/18/2016 Ot 272.4 HYPERLIPIDEMIA NEC/NOS 03/18/2016 Ot 305.1 TOBACCO USE DISORDER 03/18/2016 Ot 401.9 HYPERTENSION NOS 03/18/2016 Ot 414.00 CORON ATHEROSCLER NOS TYPE VESSEL, NATIV 03/18/2016 Ot 414.8 CHR ISCHEMIC HRT DIS NEC 03/18/2016 Ot 426.4 RT BUNDLE BRANCH BLOCK 03/18/2016 Ot 427.31 ATRIAL FIBRILLATION 03/18/2016 Ot 427.69 PREMATURE BEATS NEC 03/18/2016 Ot 427.81 SINOATRIAL NODE DYSFUNCT 03/18/2016 Ot 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.9 ARTERIAL DISEASE NOS 03/18/2016 Ot 496 CHR AIRWAY OBSTRUCT NEC 03/18/2016 Ot V10.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 03/18/2016 Ot V45.02 AUTO IMPLANTABLE CARDIAC DEFIBRILLATOR I 03/18/2016 Ot 780.97 ALTERED MENTAL STATUS 03/18/2016 SERGIO CHU MD Ot E03.9 HYPOTHYROIDISM, UNSPECIFIED 03/18/2016 SERGIO CHU MD Ot E78.5 HYPERLIPIDEMIA, UNSPECIFIED 03/18/2016 SERGIO CHU MD Ot F17.210 NICOTINE DEPENDENCE, CIGARETTES, UNCOMPL 03/18/2016 SERGIO CHU MD Ot I51.9 HEART DISEASE, UNSPECIFIED 03/18/2016 SERGIO CHU MD Ot J44.9 CHRONIC OBSTRUCTIVE PULMONARY DISEASE, U 03/18/2016 SERGIO CHU MD Ot Z08 ENCNTR FOR FOLLOW-UP EXAM AFTER TRTMT FO 03/18/2016 SERGIO CHU MD Ot Z79.01 FPC (CURRENT) USE OF ANTICOAGULANT 03/18/2016 SERGIO CHU MD Ot Z79.899 OTHER FPC (CURRENT) DRUG THERAPY 03/18/2016 SERGIO CHU MD Ot Z85.820 PERSONAL HISTORY OF MALIGNANT MELANOMA O 03/18/2016 SERGIO CHU MD Ot Z95.810 PRESENCE OF AUTOMATIC (IMPLANTABLE) CARD 03/18/2016 ELEAZARDER DOAARON Ot R41.0 DISORIENTATION, UNSPECIFIED 03/18/2016 GELLENDER DO, AARON Moreland Ot S09.90XA UNSPECIFIED INJURY OF HEAD, INITIAL ENCO 03/18/2016 RONALDLENDER DOAARON Ot X58.XXXA EXPOSURE TO OTHER SPECIFIED FACTORS , INI 03/18/2016 GELLENDER DOAARON Ot Y99.8 OTHER EXTERNAL CAUSE STATUS 03/18/2016 GELLENDER DOAARON Ot E03.9 HYPOTHYROIDISM, UNSPECIFIED 03/18/2016 GELLENDER DOAARON Ot J44.9 CHRONIC OBSTRUCTIVE PULMONARY DISEASE , U 03/18/2016 GELLENDER DOAARON Ot R06.02 SHORTNESS OF BREATH 03/18/2016 GELLENDER DOAARON Ot I50.9 HEART FAILURE, UNSPECIFIED 03/18/2016 GELLENDER DOAARON Ot J18.9 PNEUMONIA, UNSPECIFIED ORGANISM 03/18/2016 GELLENDER DOAARON Ot J44.9 CHRONIC OBSTRUCTIVE PULMONARY DISEASE , U 03/18/2016 GELLENDER DOAARON Ot I50.9 HEART FAILURE, UNSPECIFIED 03/18/2016 GELLENDER DOAARON Ot 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 03/19/2016 GELLENADAN DO, AARON A Ot 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 03/19/2016 DEONNA DO, AARON Moreland Ot 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 03/19/2016 DEONNA DO, AARON Moreland Ot H53.2 DIPLOPIA 04/02/2016 SERGIO CHU MD Ot E03.9 HYPOTHYROIDISM, UNSPECIFIED 04/02/2016 SERGIO CHU MD Ot E78.5 HYPERLIPIDEMIA, UNSPECIFIED 04/02/2016 SERGIO CHU MD Ot F17.210 NICOTINE DEPENDENCE, CIGARETTES, UNCOMPL 04/02/2016 SERGIO CHU MD Ot I51.9 HEART DISEASE, UNSPECIFIED 04/02/2016 SERGIO CHU MD Ot J44.9 CHRONIC OBSTRUCTIVE PULMONARY DISEASE, U 04/02/2016 SERGIO CHU MD Ot Z08 ENCNTR FOR FOLLOW-UP EXAM AFTER TRTMT FO 04/02/2016 SERGIO CHU MD Ot Z79.01 FOREST FIREFIGHTER (CURRENT) USE OF ANTICOAGULANT 04/02/2016 SERGIO CHU MD Ot Z79.899 OTHER FOREST FIREFIGHTER (CURRENT) DRUG THERAPY 04/02/2016 SERGIO CHU MD Ot Z85.820 PERSONAL HISTORY OF MALIGNANT MELANOMA O 04/02/2016 SERGIO CHU MD Ot Z95.810 PRESENCE OF AUTOMATIC (IMPLANTABLE) CARD 04/02/2016 SERGIO CHU MD Ot E03.9 HYPOTHYROIDISM, UNSPECIFIED 04/02/2016 SERGIO CHU MD Ot E78.5 HYPERLIPIDEMIA, UNSPECIFIED 04/02/2016 SERGIO CHU MD Ot F17.210 NICOTINE DEPENDENCE, CIGARETTES, UNCOMPL 04/02/2016 SERGIO CHU MD Ot I51.9 HEART DISEASE, UNSPECIFIED 04/02/2016 SERGIO CHU MD Ot J44.9 CHRONIC OBSTRUCTIVE PULMONARY DISEASE, U 04/02/2016 SERGIO CHU MD Ot Z08 ENCNTR FOR FOLLOW-UP EXAM AFTER TRTMT FO 04/02/2016 SERGIO CHU MD Ot Z79.01 FPC (CURRENT) USE OF ANTICOAGULANT 04/02/2016 SERGIO CHU MD Ot Z79.899 OTHER FPC (CURRENT) DRUG THERAPY 04/02/2016 SERGIO CHU MD Ot Z85.820 PERSONAL HISTORY OF MALIGNANT MELANOMA O 04/02/2016 SERGIO CHU MD Ot Z95.810 PRESENCE OF AUTOMATIC (IMPLANTABLE) CARD 04/10/2016 AARON YING DO Ot 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 04/10/2016 AARON YING DO Ot H53.2 DIPLOPIA 04/17/2016 SERGIO CHU MD Ot E03.9 HYPOTHYROIDISM, UNSPECIFIED 04/17/2016 SERGIO CHU MD Ot E78.5 HYPERLIPIDEMIA, UNSPECIFIED 04/17/2016 SERGIO CHU MD Ot F17.210 NICOTINE DEPENDENCE, CIGARETTES, UNCOMPL 04/17/2016 SERGIO CHU MD Ot I51.9 HEART DISEASE, UNSPECIFIED 04/17/2016 SERGIO CHU MD Ot J44.9 CHRONIC OBSTRUCTIVE PULMONARY DISEASE, U 04/17/2016 SERGIO CHU MD Ot Z08 ENCNTR FOR FOLLOW-UP EXAM AFTER TRTMT FO 04/17/2016 SERGIO CHU MD, Ot Z79.01 FPC (CURRENT) USE OF ANTICOAGULANT 04/17/2016 SERGIO CHU MD Ot Z79.899 OTHER FOREST FIREFIGHTER (CURRENT) DRUG THERAPY 04/17/2016 SERGIO CHU MD Ot Z85.820 PERSONAL HISTORY OF MALIGNANT MELANOMA O 04/17/2016 SERGIO CHU MD Ot Z95.810 PRESENCE OF AUTOMATIC (IMPLANTABLE) CARD 04/20/2016 AARON YING DO Ot 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 04/20/2016 ELEAZARBUNCHAARON Ot H53.2 DIPLOPIA 04/21/2016 SERGIO CHU MD Ot E03.9 HYPOTHYROIDISM, UNSPECIFIED 04/21/2016 SERGIO CHU MD Ot E78.5 HYPERLIPIDEMIA, UNSPECIFIED 04/21/2016 SERGIO CHU MD Ot F17.210 NICOTINE DEPENDENCE, CIGARETTES, UNCOMPL 04/21/2016 SERGIO CHU MD Ot I51.9 HEART DISEASE, UNSPECIFIED 04/21/2016 SERGIO CHU MD Ot J44.9 CHRONIC OBSTRUCTIVE PULMONARY DISEASE, U 04/21/2016 SERGIO CHU MD Ot Z08 ENCNTR FOR FOLLOW-UP EXAM AFTER TRTMT FO 04/21/2016 SERGIO CHU MD Ot Z79.01 FPC (CURRENT) USE OF ANTICOAGULANT 04/21/2016 SERGIO CHU MD Ot Z79.899 OTHER FOREST FIREFIGHTER (CURRENT) DRUG THERAPY 04/21/2016 SERGIO CHU MD Ot Z85.820 PERSONAL HISTORY OF MALIGNANT MELANOMA O 04/21/2016 SERGIO CHU MD Ot Z95.810 PRESENCE OF AUTOMATIC (IMPLANTABLE) CARD 05/06/2016 SERGIO CHU MD Ot E03.9 HYPOTHYROIDISM, UNSPECIFIED 05/06/2016 SERGIO CHU MD Ot E78.5 HYPERLIPIDEMIA, UNSPECIFIED 05/06/2016 SERGIO CHU MD Ot F17.210 NICOTINE DEPENDENCE, CIGARETTES, UNCOMPL 05/06/2016 SERGIO CHU MD Ot I51.9 HEART DISEASE, UNSPECIFIED 05/06/2016 SERGIO CHU MD Ot J44.9 CHRONIC OBSTRUCTIVE PULMONARY DISEASE, U 05/06/2016 SERGIO CHU MD Ot Z08 ENCNTR FOR FOLLOW-UP EXAM AFTER TRTMT FO 05/06/2016 SERGIO CHU MD Ot Z79.01 FOREST FIREFIGHTER (CURRENT) USE OF ANTICOAGULANT 05/06/2016 SERGIO CHU MD Ot Z79.899 OTHER FOREST FIREFIGHTER (CURRENT) DRUG THERAPY 05/06/2016 SERGIO CHU MD Ot Z85.820 PERSONAL HISTORY OF MALIGNANT MELANOMA O 05/06/2016 SERGIO CHU MD Ot Z95.810 PRESENCE OF AUTOMATIC (IMPLANTABLE) CARD 05/18/2016 SERGIO CHU MD Ot E03.9 HYPOTHYROIDISM, UNSPECIFIED 05/18/2016 SERGIO CHU MD Ot E78.5 HYPERLIPIDEMIA, UNSPECIFIED 05/18/2016 SERGIO CHU MD Ot F17.210 NICOTINE DEPENDENCE, CIGARETTES, UNCOMPL 05/18/2016 SERGIO CHU MD Ot I51.9 HEART DISEASE, UNSPECIFIED 05/18/2016 SERGIO CHU MD Ot J44.9 CHRONIC OBSTRUCTIVE PULMONARY DISEASE, U 05/18/2016 SERGIO CHU MD Ot Z08 ENCNTR FOR FOLLOW-UP EXAM AFTER TRTMT FO 05/18/2016 SERGIO CHU MD Ot Z79.01 FOREST FIREFIGHTER (CURRENT) USE OF ANTICOAGULANT 05/18/2016 SERGIO CHU MD Ot Z79.899 OTHER FPC (CURRENT) DRUG THERAPY 05/18/2016 SERGIO CHU MD Ot Z85.820 PERSONAL HISTORY OF MALIGNANT MELANOMA O 05/18/2016 SERGIO CHU MD Ot Z95.810 PRESENCE OF AUTOMATIC (IMPLANTABLE) CARD 06/24/2016 MATTHIAS WALKER MD Ot E03.9 HYPOTHYROIDISM, UNSPECIFIED 06/24/2016 MATTHIAS WALKER MD Ot I10 ESSENTIAL (PRIMARY) HYPERTENSION 06/24/2016 MATTHIAS WALKER MD Ot I25.10 ATHSCL HEART DISEASE OF [place] CORONARY 06/24/2016 MATTHIAS WALKER MD Ot J44.9 CHRONIC OBSTRUCTIVE PULMONARY DISEASE, U 06/24/2016 MATTHIAS WALKER MD Ot L02.31 CUTANEOUS ABSCESS OF BUTTOCK 06/24/2016 MATTHIAS WALKER MD Ot Z79.899 OTHER FPC (CURRENT) DRUG THERAPY 06/24/2016 MATTHIAS WALKER MD Ot Z95.1 PRESENCE OF AORTOCORONARY BYPASS GRAFT 06/24/2016 MATTHIAS WALKER MD Ot Z95.810 PRESENCE OF AUTOMATIC (IMPLANTABLE) CARD 06/26/2016 MATTHIAS WALKER MD Ot E03.9 HYPOTHYROIDISM, UNSPECIFIED 06/26/2016 MATTHIAS WALKER MD Ot I10 ESSENTIAL (PRIMARY) HYPERTENSION 06/26/2016 MATTHIAS WALKER MD Ot I25.10 ATHSCL HEART DISEASE OF [place] CORONARY 06/26/2016 MATTHIAS WALKER MD Ot J44.9 CHRONIC OBSTRUCTIVE PULMONARY DISEASE, U 06/26/2016 MATTHIAS WALKER MD Ot L02.31 CUTANEOUS ABSCESS OF BUTTOCK 06/26/2016 MATTHIAS WALKER MD Ot Z79.899 OTHER FOREST FIREFIGHTER (CURRENT) DRUG THERAPY 06/26/2016 MATTHIAS WALKER MD Ot Z95.1 PRESENCE OF AORTOCORONARY BYPASS GRAFT 06/26/2016 MATTHIAS WALKER MD Ot Z95.810 PRESENCE OF AUTOMATIC (IMPLANTABLE) CARD 06/30/2016 Ot 414.00 CORON ATHEROSCLER NOS TYPE VESSEL, NATIV 06/30/2016 Ot 305.1 TOBACCO USE DISORDER 06/30/2016 Ot 412 OLD MYOCARDIAL INFARCT 06/30/2016 Ot V10.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 06/30/2016 Ot 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 BYPASS 06/30/2016 Ot V58.66 LONG-TERM (CURRENT) USE OF ASPIRIN 06/30/2016 Ot V58.69 OTH MED,LT,CURRENT USE 06/30/2016 Ot V67.09 SURGERY FOLLOW-UP, OTHER SURGERY 06/30/2016 Ot 305.1 TOBACCO USE DISORDER 06/30/2016 Ot 412 OLD MYOCARDIAL INFARCT 06/30/2016 Ot V10.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 06/30/2016 Ot 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 BYPASS 06/30/2016 Ot V58.66 LONG-TERM (CURRENT) USE OF ASPIRIN 06/30/2016 Ot V58.69 OTH MED,LT,CURRENT USE 06/30/2016 Ot V67.09 SURGERY FOLLOW-UP, OTHER SURGERY 06/30/2016 SERGIO CHU MD Ot 305.1 TOBACCO USE DISORDER 06/30/2016 SERGIO CHU MD Ot 412 OLD MYOCARDIAL INFARCT 06/30/2016 VLAD GREEN SERGIO Donny Ot V10.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 06/30/2016 SERGIO CHU MD Ot 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 BYPASS 06/30/2016 SERGIO CHU MD Ot V58.66 LONG-TERM (CURRENT) USE OF ASPIRIN 06/30/2016 SERGIO CHU MD Ot V58.69 OTH MED,LT,CURRENT USE 06/30/2016 SERGIO CHU MD Ot V67.09 SURGERY FOLLOW-UP, OTHER SURGERY 06/30/2016 SERGIO CHU MD Ot 305.1 TOBACCO USE DISORDER 06/30/2016 VLAD GREEN SERGIO Donny Ot 412 OLD MYOCARDIAL INFARCT 06/30/2016 VLAD GREEN SERGIO Donny Ot V10.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 06/30/2016 SERGIO CHU MD Ot 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 BYPASS 06/30/2016 SERGIO CHU MD Ot V58.66 LONG-TERM (CURRENT) USE OF ASPIRIN 06/30/2016 SERGIO CHU MD Ot V58.69 OTH MED,LT,CURRENT USE 06/30/2016 SERGIO CHU MD Ot V67.09 SURGERY FOLLOW-UP, OTHER SURGERY 06/30/2016 AARON YING DO Ot 336.8 MYELOPATHY NEC 06/30/2016 AARON YING DO Ot 719.45 JOINT PAIN-PELVIS 06/30/2016 AARON YING DO Ot 722.52 LUMB/LUMBOSAC DISC DEGEN 06/30/2016 AARON YING DO Ot 724.5 BACKACHE NOS 06/30/2016 AARON YING DO Ot 729.5 PAIN IN LIMB 06/30/2016 AARON YING DO Ot V15.88 HISTORY OF FALL 06/30/2016 BAIMA, ADALBERTO L DRILL FOREMAN Ot 401.9 HYPERTENSION NOS 06/30/2016 ADALBERTO MOREAU L DRILL FOREMAN Ot 414.00 CORON ATHEROSCLER NOS TYPE VESSEL, NATIV 06/30/2016 ADALBERTO MOREAU L DRILL FOREMAN Ot 414.8 CHR ISCHEMIC HRT DIS NEC 06/30/2016 ADALBERTO MOREAU DRILL FOREMAN Ot 426.4 RT BUNDLE BRANCH BLOCK 06/30/2016 ADALBERTO MOREAU L DRILL FOREMAN Ot 427.69 PREMATURE BEATS NEC 06/30/2016 ADALBERTO MOREAU L DRILL FOREMAN Ot 496 CHR AIRWAY OBSTRUCT NEC 06/30/2016 ADALBERTO MOREAU DRILL FOREMAN Ot 786.09 RESPIRATORY ABNORM NEC 06/30/2016 ADALBERTO MOREAU L DRILL FOREMAN Ot V45.02 AUTO IMPLANTABLE CARDIAC DEFIBRILLATOR I 06/30/2016 VLAD GREEN, SERGIO Hines Ot 305.1 TOBACCO USE DISORDER 06/30/2016 VLAD GREEN, SERGIO Hines Ot 412 OLD MYOCARDIAL INFARCT 06/30/2016 VLAD GREEN, SERGIO Hines Ot V10.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 06/30/2016 SERGIO CHU MD Ot 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 BYPASS 06/30/2016 VLAD GREEN, SERGIO Hines Ot V58.66 LONG-TERM (CURRENT) USE OF ASPIRIN 06/30/2016 SERGIO CHU MD Ot V58.69 OTH MED,LT,CURRENT USE 06/30/2016 SERGIO CHU MD Ot V67.09 SURGERY FOLLOW-UP, OTHER SURGERY 06/30/2016 Ot 244.9 HYPOTHYROIDISM NOS 06/30/2016 Ot 272.4 HYPERLIPIDEMIA NEC/NOS 06/30/2016 Ot 305.1 TOBACCO USE DISORDER 06/30/2016 Ot 401.9 HYPERTENSION NOS 06/30/2016 Ot 414.00 CORON ATHEROSCLER NOS TYPE VESSEL, NATIV 06/30/2016 Ot 414.8 CHR ISCHEMIC HRT DIS NEC 06/30/2016 Ot 426.4 RT BUNDLE BRANCH BLOCK 06/30/2016 Ot 427.31 ATRIAL FIBRILLATION 06/30/2016 Ot 427.69 PREMATURE BEATS NEC 06/30/2016 Ot 427.81 SINOATRIAL NODE DYSFUNCT 06/30/2016 Ot 447.9 ARTERIAL DISEASE NOS 06/30/2016 Ot 496 CHR AIRWAY OBSTRUCT NEC 06/30/2016 Ot V10.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 06/30/2016 Ot V45.02 AUTO IMPLANTABLE CARDIAC DEFIBRILLATOR I 06/30/2016 Ot 780.97 ALTERED MENTAL STATUS 06/30/2016 SERGIO CHU MD Ot E03.9 HYPOTHYROIDISM, UNSPECIFIED 06/30/2016 SERGIO CHU MD Ot E78.5 HYPERLIPIDEMIA, UNSPECIFIED 06/30/2016 SERGIO CHU MD Ot F17.210 NICOTINE DEPENDENCE, CIGARETTES, UNCOMPL 06/30/2016 SERGIO CHU MD Ot I51.9 HEART DISEASE, UNSPECIFIED 06/30/2016 SERGIO CHU MD Ot J44.9 CHRONIC OBSTRUCTIVE PULMONARY DISEASE, U 06/30/2016 SERGIO CHU MD Ot Z08 ENCNTR FOR FOLLOW-UP EXAM AFTER TRTMT FO 06/30/2016 SERGIO CHU MD Ot Z79.01 FPC (CURRENT) USE OF ANTICOAGULANT 06/30/2016 SERGIO CHU MD Ot Z79.899 OTHER FOREST FIREFIGHTER (CURRENT) DRUG THERAPY 06/30/2016 SERGIO CHU MD Ot Z85.820 PERSONAL HISTORY OF MALIGNANT MELANOMA O 06/30/2016 SERGIO CHU MD Ot Z95.810 PRESENCE OF AUTOMATIC (IMPLANTABLE) CARD 06/30/2016 AARON YING DO Ot R41.0 DISORIENTATION, UNSPECIFIED 06/30/2016 AARON YING DO Ot S09.90XA UNSPECIFIED INJURY OF HEAD, INITIAL ENCO 06/30/2016 AARON YING DO Ot X58.XXXA EXPOSURE TO OTHER SPECIFIED FACTORS , INI 06/30/2016 RONALDAARON YOUNG DO Ot Y99.8 OTHER EXTERNAL CAUSE STATUS 06/30/2016 AARON YING DO Ot E03.9 HYPOTHYROIDISM, UNSPECIFIED 06/30/2016 AARON YING DO Ot J44.9 CHRONIC OBSTRUCTIVE PULMONARY DISEASE , U 06/30/2016 AARON YING DO Ot R06.02 SHORTNESS OF BREATH 06/30/2016 AARON YING DO Ot I50.9 HEART FAILURE, UNSPECIFIED 06/30/2016 AARON YING DO Ot J18.9 PNEUMONIA, UNSPECIFIED ORGANISM 06/30/2016 AARON YING DO Ot J44.9 CHRONIC OBSTRUCTIVE PULMONARY DISEASE , U 06/30/2016 AARON YING DO Ot I50.9 HEART FAILURE, UNSPECIFIED 06/30/2016 AARON YING DO Ot 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 06/30/2016 AARON YIGN DO Ot H53.2 DIPLOPIA 07/20/2016 ZOHAIBBETTYP Ot F17.210 NICOTINE DEPENDENCE, CIGARETTES, UNCOMPL 07/20/2016 ZOHAIB, BETTY DRILL FOREMAN Ot I10 ESSENTIAL (PRIMARY) HYPERTENSION 07/20/2016 ZOHAIB, BETTY DRILL FOREMAN Ot I25.10 ATHSCL HEART DISEASE OF [place] CORONARY 07/20/2016 ZOHAIBBETTY NealP Ot I48.2 CHRONIC ATRIAL FIBRILLATION 07/20/2016 ZOHAIBBETTY Neal DRILL FOREMAN Ot I51.7 CARDIOMEGALY 07/20/2016 ZOHAIBBETTY Neal DRILL FOREMAN Ot J18.9 PNEUMONIA, UNSPECIFIED ORGANISM 07/20/2016 ZOHAIB, BETTY DRILL FOREMAN Ot R09.89 OTH SYMPTOMS AND SIGNS INVOLVING THE CIR 07/20/2016 BETTY PENNYP Ot Z79.01 FOREST FIREFIGHTER (CURRENT) USE OF ANTICOAGULANT 07/20/2016 ZOHAIB BETTY DRILL FOREMAN Ot Z79.82 FPC (CURRENT) USE OF ASPIRIN 07/20/2016 BETTY PENNY DRILL FOREMAN Ot Z79.899 OTHER FOREST FIREFIGHTER (CURRENT) DRUG THERAPY 07/20/2016 ZOHAIB BETTY DRILL FOREMAN Ot Z86.73 PRSNL HX OF TIA (TIA), AND CEREB INFRC W 07/20/2016 BETTY PENNY DRILL FOREMAN Ot Z95.810 PRESENCE OF AUTOMATIC (IMPLANTABLE) CARD 07/22/2016 ZOHAIB, BETTY DRILL FOREMAN Ot F17.210 NICOTINE DEPENDENCE, CIGARETTES, UNCOMPL 07/22/2016 ZOHAIB, BETTY DRILL FOREMAN Ot I10 ESSENTIAL (PRIMARY) HYPERTENSION 07/22/2016 ZHOAIBBETTY Neal DRILL FOREMAN Ot I25.10 ATHSCL HEART DISEASE OF [place] CORONARY 07/22/2016 ZOHAIB, BETTY DRILL FOREMAN Ot I48.2 CHRONIC ATRIAL FIBRILLATION 07/22/2016 ZOHAIB, BETTY DRILL FOREMAN Ot I51.7 CARDIOMEGALY 07/22/2016 ZOHAIBBETTY Neal DRILL FOREMAN Ot J18.9 PNEUMONIA, UNSPECIFIED ORGANISM 07/22/2016 ZOHAIB, BETTY DRILL FOREMAN Ot R09.89 OTH SYMPTOMS AND SIGNS INVOLVING THE CIR 07/22/2016 ZOHAIB BETTY DRILL FOREMAN Ot Z79.01 FOREST FIREFIGHTER (CURRENT) USE OF ANTICOAGULANT 07/22/2016 ZOHAIB BETTY DRILL FOREMAN Ot Z79.82 FOREST FIREFIGHTER (CURRENT) USE OF ASPIRIN 07/22/2016 BETTY PENNY Ot Z79.899 OTHER FOREST FIREFIGHTER (CURRENT) DRUG THERAPY 07/22/2016 BETTY PENNY Ot Z86.73 PRSNL HX OF TIA (TIA), AND CEREB INFRC W 07/22/2016 BETTY PENNY Ot Z95.810 PRESENCE OF AUTOMATIC (IMPLANTABLE) CARD 07/28/2016 AARON YING DO Ot S09.90XA UNSPECIFIED INJURY OF HEAD, INITIAL ENCO 07/28/2016 AARON YING DO Ot W18.00XA STRIKING AGAINST UNSP OBJECT W SUBSEQUEN 07/28/2016 RONALDLENDER AARON LAIRD Ot Y99.8 OTHER EXTERNAL CAUSE STATUS 07/28/2016 DEONNA LAIRD, AARON Moreland Ot Z79.01 FOREST FIREFIGHTER (CURRENT) USE OF ANTICOAGULANT 07/30/2016 DEONNA LAIRD, AARON Moreland Ot I50.9 HEART FAILURE, UNSPECIFIED 08/19/2016 RONALDLENDER , AARON Moreland Ot I50.9 HEART FAILURE, UNSPECIFIED 08/25/2016 Ot 305.1 TOBACCO USE DISORDER 08/25/2016 Ot 412 OLD MYOCARDIAL INFARCT 08/25/2016 Ot V10.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 08/25/2016 Ot 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 BYPASS 08/25/2016 Ot V58.66 LONG-TERM (CURRENT) USE OF ASPIRIN 08/25/2016 Ot V58.69 OTH MED,LT,CURRENT USE 08/25/2016 Ot V67.09 SURGERY FOLLOW-UP, OTHER SURGERY 08/25/2016 Ot 305.1 TOBACCO USE DISORDER 08/25/2016 Ot 412 OLD MYOCARDIAL INFARCT 08/25/2016 Ot V10.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 08/25/2016 Ot 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 BYPASS 08/25/2016 Ot V58.66 LONG-TERM (CURRENT) USE OF ASPIRIN 08/25/2016 Ot V58.69 OTH MED,LT,CURRENT USE 08/25/2016 Ot V67.09 SURGERY FOLLOW-UP, OTHER SURGERY 08/25/2016 VLAD GREEN, SERGIO Hines Ot 305.1 TOBACCO USE DISORDER 08/25/2016 SERGIO CHU MD Ot 412 OLD MYOCARDIAL INFARCT 08/25/2016 SERGIO CHU MD Ot V10.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 08/25/2016 SERGIO CHU MD Ot 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 BYPASS 08/25/2016 SERGIO CHU MD Ot V58.66 LONG-TERM (CURRENT) USE OF ASPIRIN 08/25/2016 ESRGIO CHU MD Ot V58.69 OTH MED,LT,CURRENT USE 08/25/2016 SERGIO CHU MD Ot V67.09 SURGERY FOLLOW-UP, OTHER SURGERY 08/25/2016 SERGIO CHU MD Ot 305.1 TOBACCO USE DISORDER 08/25/2016 SERGIO CHU MD Ot 412 OLD MYOCARDIAL INFARCT 08/25/2016 SERGIO CHU MD Ot V10.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 08/25/2016 SERGIO CHU MD Ot 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 BYPASS 08/25/2016 SERGIO CHU MD Ot V58.66 LONG-TERM (CURRENT) USE OF ASPIRIN 08/25/2016 SERGIO CHU MD Ot V58.69 OTH MED,LT,CURRENT USE 08/25/2016 SERGIO CHU MD Ot V67.09 SURGERY FOLLOW-UP, OTHER SURGERY 08/25/2016 AARON YING DO Ot 336.8 MYELOPATHY NEC 08/25/2016 AARON YING DO Ot 719.45 JOINT PAIN-PELVIS 08/25/2016 AARON YING DO Ot 722.52 LUMB/LUMBOSAC DISC DEGEN 08/25/2016 AARON YING DO Ot 724.5 BACKACHE NOS 08/25/2016 AARON YING DO Ot 729.5 PAIN IN LIMB 08/25/2016 AARON YING DO Ot V15.88 HISTORY OF FALL 08/25/2016 ADALBERTO MOREAU DRILL FOREMAN Ot 401.9 HYPERTENSION NOS 08/25/2016 ADALBERTO MOREAU DRILL FOREMAN Ot 414.00 CORON ATHEROSCLER NOS TYPE VESSEL, NATIV 08/25/2016 ADALBERTO MOREAU DRILL FOREMAN Ot 414.8 CHR ISCHEMIC HRT DIS NEC 08/25/2016 ADALBERTO MOREAU DRILL FOREMAN Ot 426.4 RT BUNDLE BRANCH BLOCK 08/25/2016 ADALBERTO MOREAU DRILL FOREMAN Ot 427.69 PREMATURE BEATS NEC 08/25/2016 ADALBERTO MOREAU DRILL FOREMAN Ot 496 CHR AIRWAY OBSTRUCT NEC 08/25/2016 ADALBERTO MOREAU DRILL FOREMAN Ot 786.09 RESPIRATORY ABNORM NEC 08/25/2016 BAIMA, ADALBERTO L DRILL FOREMAN Ot V45.02 AUTO IMPLANTABLE CARDIAC DEFIBRILLATOR I 08/25/2016 SERGIO CHU MD Ot 305.1 TOBACCO USE DISORDER 08/25/2016 SERGIO CHU MD Ot 412 OLD MYOCARDIAL INFARCT 08/25/2016 SERGIO CHU MD Ot V10.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 08/25/2016 SERGIO CHU MD Ot 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 BYPASS 08/25/2016 SERGIO CHU MD Ot V58.66 LONG-TERM (CURRENT) USE OF ASPIRIN 08/25/2016 SERGIO CHU MD Ot V58.69 OTH MED,LT,CURRENT USE 08/25/2016 SERGIO CHU MD Ot V67.09 SURGERY FOLLOW-UP, OTHER SURGERY 08/25/2016 Ot 244.9 HYPOTHYROIDISM NOS 08/25/2016 Ot 272.4 HYPERLIPIDEMIA NEC/NOS 08/25/2016 Ot 305.1 TOBACCO USE DISORDER 08/25/2016 Ot 401.9 HYPERTENSION NOS 08/25/2016 Ot 414.00 CORON ATHEROSCLER NOS TYPE VESSEL, NATIV 08/25/2016 Ot 414.8 CHR ISCHEMIC HRT DIS NEC 08/25/2016 Ot 426.4 RT BUNDLE BRANCH BLOCK 08/25/2016 Ot 427.31 ATRIAL FIBRILLATION 08/25/2016 Ot 427.69 PREMATURE BEATS NEC 08/25/2016 Ot 427.81 SINOATRIAL NODE DYSFUNCT 08/25/2016 Ot 447.9 ARTERIAL DISEASE NOS 08/25/2016 Ot 496 CHR AIRWAY OBSTRUCT NEC 08/25/2016 Ot V10.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 08/25/2016 Ot V45.02 AUTO IMPLANTABLE CARDIAC DEFIBRILLATOR I 08/25/2016 Ot 780.97 ALTERED MENTAL STATUS 08/25/2016 SERGIO CHU MD Ot E03.9 HYPOTHYROIDISM, UNSPECIFIED 08/25/2016 SERGIO CHU MD Ot E78.5 HYPERLIPIDEMIA, UNSPECIFIED 08/25/2016 SERGIO CHU MD Ot F17.210 NICOTINE DEPENDENCE, CIGARETTES, UNCOMPL 08/25/2016 SERGIO CHU MD Ot I51.9 HEART DISEASE, UNSPECIFIED 08/25/2016 SERGIO CHU MD Ot J44.9 CHRONIC OBSTRUCTIVE PULMONARY DISEASE, U 08/25/2016 SERGIO CHU MD Ot Z08 ENCNTR FOR FOLLOW-UP EXAM AFTER TRTMT FO 08/25/2016 SERGIO CHU MD Ot Z79.01 FPC (CURRENT) USE OF ANTICOAGULANT 08/25/2016 VLAD GREEN, SERGIO Donny Ot Z79.899 OTHER FPC (CURRENT) DRUG THERAPY 08/25/2016 VLAD GREEN, SERGIO Hines Ot Z85.820 PERSONAL HISTORY OF MALIGNANT MELANOMA O 08/25/2016 VLAD GREEN, SERGIO Hines Ot Z95.810 PRESENCE OF AUTOMATIC (IMPLANTABLE) CARD 08/25/2016 DEONNA LAIRD, AARON Moreland Ot R41.0 DISORIENTATION, UNSPECIFIED 08/25/2016 RONALDLENDER DO, AARNO Moreland Ot S09.90XA UNSPECIFIED INJURY OF HEAD, INITIAL ENCO 08/25/2016 RONALDLENDER DO, AARON Moreland Ot X58.XXXA EXPOSURE TO OTHER SPECIFIED FACTORS , INI 08/25/2016 ELEAZARDER DO, AARON Moreland Ot Y99.8 OTHER EXTERNAL CAUSE STATUS 08/25/2016 RONALDLENDER DO, AARON Moreland Ot E03.9 HYPOTHYROIDISM, UNSPECIFIED 08/25/2016 GELLENDER DO, AARON Moreland Ot J44.9 CHRONIC OBSTRUCTIVE PULMONARY DISEASE , U 08/25/2016 RONALDLENDER DO, AARON Moreland Ot R06.02 SHORTNESS OF BREATH 08/25/2016 RONALDLENDER DO, AARON Moreland Ot I50.9 HEART FAILURE, UNSPECIFIED 08/25/2016 GELLENDER DO, AARON Moreland Ot J18.9 PNEUMONIA, UNSPECIFIED ORGANISM 08/25/2016 GELLENDER DO, AARON Moreland Ot J44.9 CHRONIC OBSTRUCTIVE PULMONARY DISEASE , U 08/25/2016 RONALDLENDER DO, AARON Moreland Ot I50.9 HEART FAILURE, UNSPECIFIED 08/25/2016 GELLENDER DO, AARON Moreland Ot 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 08/25/2016 RONALDLENDER DO, AARON Moreland Ot H53.2 DIPLOPIA 08/25/2016 GELLENDER DO, AARON Moreland Ot I50.9 HEART FAILURE, UNSPECIFIED 08/25/2016 GELLENDER DO, AARON Moreland Ot J18.9 PNEUMONIA, UNSPECIFIED ORGANISM 08/25/2016 RONALDLENDER DO, AARON Moreland Ot S09.90XA UNSPECIFIED INJURY OF HEAD, INITIAL ENCO 08/25/2016 RONALDLENDER DO, AARON Moreland Ot W18.00XA STRIKING AGAINST UNSP OBJECT W SUBSEQUEN 08/25/2016 RONALDLENDER DO, AARON Moreland Ot Y99.8 OTHER EXTERNAL CAUSE STATUS 08/25/2016 GELLENDER DO, AARON Moreland Ot Z79.01 FOREST FIREFIGHTER (CURRENT) USE OF ANTICOAGULANT 08/25/2016 AARON YING DO Ot S09.90XA UNSPECIFIED INJURY OF HEAD, INITIAL ENCO 08/25/2016 AARON YING DO Ot W18.00XA STRIKING AGAINST UNSP OBJECT W SUBSEQUEN 08/25/2016 AARON YING DO Ot Y99.8 OTHER EXTERNAL CAUSE STATUS 08/25/2016 AARON YING DO Ot Z79.01 FPC (CURRENT) USE OF ANTICOAGULANT 08/25/2016 AARON YING DO Ot I50.9 HEART FAILURE, UNSPECIFIED Procedures Encounters ACCT No. Visit Date/Time Discharge Status Pt. Type Provider Facility Loc./Unit Complaint [id number] 07/20/2016 10:58:00 2016 14:25:00 DIS Emergency ZOHAIBBETTY [facility] ER SLURRED SPEECH, CONGESTION [id number] 06/23/2016 16:50:00 2015 10:30:00 DIS Outpatient MATTHIAS WALKER MD [facility] SDC R GLUTEAL ABSCESS [id number] 11/11/2015 07:53:00 2015 09:40:00 DIS Emergency MARYAM LACIE Donny [facility] ER FALL/HEAD INJURY [id number] 04/11/2015 13:51:00 2015 00:01:00 DIS Outpatient SERGIO CHU MD [facility] ONC [id number] 01/28/2015 11:33:00 2014 16:15:00 DIS Inpatient DEONNA LAIRD AARON Aniceto [facility] CSD CHF,FALL VS SYNCOPE X2; DYSPNEA [id number] 03/21/2014 10:59:00 2013 23:59:59 CLS Outpatient SERGIO CHU MD [facility] ONC [id number] 02/08/2014 08:27:00 2013 23:59:59 CLS Outpatient ADALBERTO MOREAU [facility] CARD HYPERLIPIDEMIA ESCHEMIC CARDIOMETHAPY [id number] 09/07/2013 11:24:00 2013 23:59:59 CLS Outpatient GELLENDER AARON LAIRD [facility] RAD FALL [id number] 03/22/2013 10:18:00 2012 23:59:59 CLS Outpatient SERGIO CHU MD [facility] ONC [id number] 02/08/2013 10:18:00 2012 23:59:59 CLS Outpatient SERGIO CHU MD [facility] ONC [id number] 08/27/2016 13:00:00 JOVON LORENZANA MD FACC , FRANCISCO FACP CCDS [facility] CARD CAD,HTN,HLP [id number] 07/29/2016 15:15:00 ACT Outpatient RONALDHANNAH AARON LAIRD [facility] LAB CHF [id number] 07/27/2016 11:53:00 ACT Outpatient RONALDHANNAH AARON LAIRD [facility] RAD FELL AND HIT HEAD [id number] 07/27/2016 09:17:00 ACT Outpatient RONALDHANNAH AARON LAIRD [facility] RAD CHF,PNEUMONIA [id number] 04/15/2016 14:34:00 ACT Outpatient SERGIO CHU MD [facility] ONC [id number] 03/18/2016 14:12:00 ACT Outpatient RONALDHANNAH AARON LAIRD [facility] RAD TIA,DOUBLE VISION ONSET EARLY [id number] 12/19/2015 14:57:00 ACT Outpatient RONALDHANNAH AARON LAIRD [facility] LAB CHF [id number] 12/03/2015 16:12:00 ACT Outpatient RONALDLENADAN AARON LAIRD [facility] LAB PNEUMONIA,CHF,COPD [id number] 11/27/2015 15:51:00 ACT Outpatient RONALDLENADAN AARON LAIRD [facility] RAD COPD,SOB [id number] 09/16/2015 11:36:00 ACT Outpatient RONALDHANNAH AARON LAIRD [facility] RAD CONFUSION, FALL W/HEAD INJURY [id number] 10/31/2014 08:58:00 Document Registration [id number] 08/28/2014 08:22:00 Document Registration [id number] 08/27/2014 13:32:00 Document Registration [id number] 02/10/2012 09:52:00 Document Registration [id number] 08/12/2011 10:02:00 Document Registration [id number] 01/19/2011 11:19:00 Document Registration [id number] 08/19/2010 09:55:00 Document Registration [id number] 04/18/2010 10:55:00 Document Registration [id number] 10/15/2009 10:36:00 Document Registration [id number] 08/20/2009 10:13:00 Document Registration [id number] 05/10/2009 08:56:00 Document Registration [id number] 04/29/2009 10:07:00 Document Registration [id number] 04/26/2009 11:47:00 Document Registration
--- NOTE | 2016-09-02 08:11 | ECHOCARDIOGRAPHY REPORT ---
PROCEDURE PHYSICIAN: FRANCISCO MATHEW DATE OF PROCEDURE: 08/27/2016 TWO DIMENSIONAL ECHOCARDIOGRAM REPORT PRIMARY PHYSICIAN: Dr. Garcia OTHER PHYSICIAN: REFERRING PHYSICIAN: ORDERING PHYSICIAN: Dr. Mathew INDICATION FOR THE PROCEDURE: 1. Ischemic cardiomyopathy. 2. Coronary artery disease. 3. Chronic systolic congestive heart failure. MEASUREMENTS DERIVED VALUES LV DIAMETER (LAX) NORMALS NORMALS Diastolic 6.5 (3.6-5.2) Eject. Fract. (60%+/-6%) Systolic (2.3-3.9) Diastolic Vol. % Shortening (0.22-0.42) Systolic Vol. Aortic Root 3.2 IVS THICKNESS Diastolic 0.9 (0.6-1.1) LVPW THICKNESS Diastolic 1 (0.6-1.1) LA DIAMETER Systolic 3.5 (2.1-3.7) DESCRIPTION: Two-dimensional echocardiography shows significant impairment of global left ventricular systolic function. There is distal anteroseptal and apical hypokinesis to akinesis. There also appears to be global hypokinesis. Aortic, mitral and tricuspid valve leaflets show fair to good leaflet excursion. There is mild to moderate aortic valve sclerosis and mitral annular calcification. There is mild to moderate enlargement of the left ventricle. Doppler imaging shows mild mitral, tricuspid and aortic regurgitation. Echodense structures in the right heart are consistent with pacemaker/defibrillator lead/leads. There is no Doppler evidence of significant valvular stenosis. There is no evidence of significant intracardiac shunt on this transthoracic echocardiographic study. Inferior vena cava does not appear to be significantly dilated and does exhibit inspiratory collapse. CONCLUSIONS: 1. Impairment of global left ventricular systolic function with an ejection fraction of approximately 25%. 2. Global hypokinesis, more marked in the anteroapical wall. 3. Mitral annular calcification and aortic valve sclerosis without evidence of significant valvular stenosis. 4. Mild mitral, tricuspid and aortic regurgitation. 5. Pulmonary artery systolic pressure is estimated to be approximately 25 mmHg. Job ID: [id number] Dictated Date: 09/01/2016 14:58:47 Associate Software Engineer Date: 09/02/2016 08:05:13 / [email or web address]
== END ==
LOC: CARD 13:04
PROVIDERS: ATTEND Internal Medicine Cardiovascular Disease
DX: I25.10 Atherosclerotic heart disease of native coronary artery without angina pectoris (principal); I50.22 Chronic systolic (congestive) heart failure; I10 Essential (primary) hypertension; E78.4 Other hyperlipidemia; I25.5 Ischemic cardiomyopathy; Z72.0 Tobacco use
CPT/HCPCS: 93306

== ENCOUNTER → 2016-12-10 | Outpatient (CLI) | payer MEDICARE ==
[2016-12-10 15:21] LABS: RED BLOOD COUNT 4.24 10^6/uL (4.35-5.85); WHITE BLOOD COUNT 8.5 10^3/uL (4.3-11.0)
[2016-12-10 15:42] LABS: ALBUMIN 3.7 G/DL (3.2-4.5); BILIRUBIN,TOTAL 0.9 MG/DL (0.1-1.0); CREATININE SERUM 1.88 MG/DL (0.60-1.30); POTASSIUM 4.9 MMOL/L (3.6-5.0)
[2016-12-10 16:02] LABS: THYROID STIMULATING HORMONE 0.32 UIU/ML (0.35-4.94)
== END ==
LOC: LAB 14:56
PROVIDERS: ATTEND Family Medicine
DX: E03.9 Hypothyroidism, unspecified (principal); I10 Essential (primary) hypertension; R53.83 Other fatigue
CPT/HCPCS: 36415; 80053; 84443; 85027

== ENCOUNTER → 2016-12-14 | Outpatient (CLI) | payer MEDICARE ==
[2016-12-14 14:53] LABS: CALCIUM 9.4 MG/DL (8.5-10.1); CREATININE SERUM 1.67 MG/DL (0.60-1.30)
== END ==
LOC: LAB 14:22
PROVIDERS: ATTEND Family Medicine
DX: N28.9 Disorder of kidney and ureter, unspecified (principal)
CPT/HCPCS: 36415; 80048

== ENCOUNTER 2017-04-11 00:56 | Emergency (ER) | payer MEDICARE ==
[~2017-04-11] VITALS: Ht 177.8 cm; Wt 56.9 kg
[2017-04-11 01:11] LABS: BASOPHILS % (AUTO) 0 % (0-10); EOSINOPHILS # (AUTO) 0.3 10^3/uL (0.0-0.3); EOSINOPHILS % (AUTO) 3 % (0-10); LYMPHOCYTES # (AUTO) 2.3 X 10^3 (1.0-4.0); LYMPHOCYTES % (AUTO) 24 % (12-44); MEAN CORPUSCULAR HEMOGLOBIN 32 PG (25-34); MEAN CORPUSCULAR HGB CONC 33 G/DL (32-36); MEAN CORPUSCULAR VOLUME 97 FL (80-99); MEAN PLATELET VOLUME 10.6 FL (7.4-10.4); MONOCYTES # (AUTO) 1.7 X 10^3 (0.0-1.0); MONOCYTES % (AUTO) 18 % (0-12); NEUTROPHILS # (AUTO) 5.2 X 10^3 (1.8-7.8); NEUTROPHILS % (AUTO) 55 % (42-75); PLATELET COUNT 196 10^3/uL (130-400); RED BLOOD COUNT 3.92 10^6/uL (4.35-5.85); RED CELL DISTRIBUTION WIDTH 13.8 % (10.0-14.5); WHITE BLOOD COUNT 9.5 10^3/uL (4.3-11.0)
[2017-04-11] MEDS ORDERED: ASPIRIN 81 MG CHEW (CHILDREN'S ASA) PO ONE (01:15)
[2017-04-11 01:21] LABS: INR 1.1 (0.8-1.4); PROTHROMBIN TIME PATIENT 14.6 SEC (12.2-14.7)
--- NOTE | 2017-04-11 01:25 | ED Cardiac General ---
History of Present Illness General Chief Complaint: Cardiac/General Problems Stated Complaint: CHEST PAIN LEG PAIN Nursing Triage Note: patient was having leg cramps and then began to have SOA with chest pain, when EMS arrived chest pain had resolved without intervention Source: patient, family, EMS Exam Limitations: physical impairment (hard of hearing and underlying dementia type symptoms.) History of Present Illness Time seen by provider: 01:00 Initial Comments Here by EMS with report of leg pain and chest pain tonight. reports that the patient woke up and was complaining of leg pain. She rubbed his legs and he felt better. She heard him moaning again and then went and checked on him and found that he was holding his chest. Patient is a very poor historian. He denies complaints except being cold right now. Patient of Dr. Tang and Dr. Ying. Saw Dr. Mathew on and there is no significant findings or changes in that doctor visit. No report of fever, vomiting or diarrhea. No report of breathing problems. 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 ASA po BATCH MIXER OPERATOR: No Associated Systoms: Cough, No Fever/Chills, No Nausea/Vomiting, No Shortness of Air, No Weakness Allergies and Home Medications Allergies Coded Allergies: No Known Drug Allergies (Verified , 06/12/08) Home Medications Albuterol Sulfate 18 Gm Hfa.aer.ad, 1-2 PUFF IH Q6H for 10 Days, Ref 0 Prescribed by: BETTY PENNY on 07/20/16 1405 Apixaban 5 Mg Tablet, 5 MG PO BID, (Reported) Aspirin 81 Mg Chew, 81 MG PO HS, (Reported) Atorvastatin Calcium 10 Mg Tablet, 10 MG PO DAILY, (Reported) Furosemide 20 Mg Tablet, 20 MG PO DAILY, (Reported) Levothyroxine Sodium 100 Mcg Tablet, 100 MCG PO DAILY, (Reported) Lisinopril 20 Mg Tablet, 20 MG PO DAILY, (Reported) Metoprolol Succinate 25 Mg Tab.er.24h, 25 MG PO DAILY, (Reported) Mupirocin 22 Gm Oint...g., TP BID, (Reported) Review of Systems Constitutional: see HPI, No chills, No fever EENTM: No Symptoms Reported Respiratory: See HPI Cardiovascular: See HPI, Chest Pain, Denies Edema, Irregular Heart Rate Gastrointestinal: Denies Diarrhea, Denies Vomiting Musculoskeletal: see HPI, muscle pain, muscle stiffness Psychiatric/Neurological: Weakness (global), Other (hearing with baseline slurred speech and deconditioning.) All Other Systems Reviewed Negative Unless Noted: Yes Past Almwjqz-Vhmulj-Smhvpf Hx Patient Social History Alcohol Use: Denies Use Recreational Drug Use: No Smoking Status: Current Everyday Smoker Type Used: Cigarettes Recent Foreign Travel: No Contact w/Someone Who Travel: No Recent Infectious Disease Expo: No Recent Hopitalizations: No Physical Abuse: No Sexual Abuse: No Immunizations Up To Date Tetanus Booster (TDap): Unknown PED Vaccines UTD: Yes Date of Pneumonia Vaccine: Mar 05, 2012 Date of Influenza Vaccine: Mar 16, 2016 Seasonal Allergies Seasonal Allergies: No Surgeries History of Surgeries: Yes (HEART BYPASS) Surgeries: Cardiac, CABG, Defibrillator, Pacemaker Respiratory History of Respiratory Disorde: No Respiratory Disorders: COPD, Emphysema Currently Using CPAP: No Currently Using BIPAP: No Cardiovascular History of Cardiac Disorders: Yes (Tricuspid Valve Dz, Hx PVT, RBBB, SA Dysfunction) Cardiac Disorders: Atrial Fibrillation, Cardiomyopathy, Coronary Artery Disease , Heart Attack, High Cholesterol, Hypertension, Valvular Heart Disease Neurological History of Neurological Disord: Yes (Carotid Artery Occlus with CVA) Neurological Disorders: Dementia, Stroke Reproductive System Hx Reproductive Disorders: No Sexually Transmitted Disease: No HIV/AIDS: No Gastrointestinal History of Gastrointestinal Di: Yes Gastrointestinal Disorders: Flores's Esophagus, Esophagitis Musculoskeletal History of Musculoskeletal Dis: Yes (MELANOMA ON HIS TOE STAGE 3 ABOUT @ 20 YRS AGO) Musculoskeletal Disorders: Arthritis Endocrine History of Endocrine Disorders: Yes Endocrine Disorders: Hypothyroidsim HEENT HEENT Disorders: Cataract Loss of Vision: Denies Hearing Impairment: Hard of Hearing, Bilateral Hearing Aide Cancer History of Cancer: Yes Cancer: Melanoma Psychosocial History of Psychiatric Problem: No (probable dementia) Suicide Risk Score: 0 Integumentary History of Skin or Integumenta: No Blood Transfusions History of Blood Disorders: No Adverse Reaction to a Blood Tr: No Reviewed Nursing Assessment Reviewed/Agree w Nursing PMH: Yes Family Medical History Family Medial History: Alcoholism G8 BROTHER Cardiovascular disease 19 FATHER, Onset:40's - 50 Diabetes mellitus 19 MOTHER, Onset:40's - 50 Hypercholesterolemia 19 MOTHER Hypertension 19 FATHER 19 MOTHER Myocardial infarction 19 FATHER Physical Exam Vital Signs Vital Sign - Last 12Hours 04/11/17 00:59 Temp 98.7 Pulse 73 Resp 18 B/P (MAP) 120/50 Pulse Ox 95 Capillary Refill : Less Than 3 Seconds General Appearance: No Apparent Distress, Thin HEENT: PERRL/EOMI, Pharynx Normal Neck: Non Tender, Supple Respiratory: No Respiratory Distress, Crackles (bilateral bases) Cardiovascular: No Murmur, Irregularly Irregular Gastrointestinal: Non Tender, Soft Extremity: Normal Range of Motion, Non Tender Neurologic/Psychiatric: Alert, Motor Weakness (global), Other (answers few questions. Follows simple commands. Very hard of hearing.) Skin: Normal Color, Warm/Dry Progress/Results/Core Measures Results/Orders Lab Results Laboratory Tests Test 04/11/17 01:00 Range/Units White Blood Count 9.5 4.3-11.0 10^3/uL Red Blood Count 3.92 L 4.35-5.85 10^6/uL Hemoglobin 12.7 L 13.3-17.7 G/DL Hematocrit 38 L 40-54 % Mean Corpuscular Volume 97 80-99 FL Mean Corpuscular Hemoglobin 32 25-34 PG Mean Corpuscular Hemoglobin Concent 33 32-36 G/DL Red Cell Distribution Width 13.8 10.0-14.5 % Platelet Count 196 130-400 10^3/uL Mean Platelet Volume 10.6 H 7.4-10.4 FL Neutrophils (%) (Auto) 55 42-75 % Lymphocytes (%) (Auto) 24 12-44 % Monocytes (%) (Auto) 18 H 0-12 % Eosinophils (%) (Auto) 3 0-10 % Basophils (%) (Auto) 0 0-10 % Neutrophils # (Auto) 5.2 1.8-7.8 X 10^3 Lymphocytes # (Auto) 2.3 1.0-4.0 X 10^3 Monocytes # (Auto) 1.7 H 0.0-1.0 X 10^3 Eosinophils # (Auto) 0.3 0.0-0.3 10^3/uL Basophils # (Auto) 0.0 0.0-0.1 10^3/uL Prothrombin Time 14.6 12.2-14.7 SEC INR Comment 1.1 0.8-1.4 Activated Partial Thromboplast Time 32 24-35 SEC Sodium Level 141 135-145 MMOL/L Potassium Level 4.0 3.6-5.0 MMOL/L Chloride Level 107 98-107 MMOL/L Carbon Dioxide Level 21 21-32 MMOL/L Anion Gap 13 5-14 MMOL/L Blood Urea Nitrogen 42 H 7-18 MG/DL Creatinine 1.96 H 0.60-1.30 MG/DL Estimat Glomerular Filtration Rate 33 BUN/Creatinine Ratio 21 Glucose Level 107 H 70-105 MG/DL Calcium Level 8.7 8.5-10.1 MG/DL Magnesium Level 2.7 H 1.8-2.4 MG/DL Total Bilirubin 0.4 0.1-1.0 MG/DL Aspartate Amino Transf (AST/SGOT) 16 5-34 U/L Alanine Aminotransferase (ALT/SGPT) 13 0-55 U/L Alkaline Phosphatase 62 40-136 U/L Myoglobin 76.1 10.0-92.0 NG/ML Troponin I < 0.30 <0.30 NG/ML B-Type Natriuretic Peptide 794.0 H <100.0 PG/ML Total Protein 6.6 6.4-8.2 GM/DL Albumin 3.6 3.2-4.5 GM/DL My Orders Orders - GERALD SHOOK MD Cbc With Automated Diff (04/11/17 01:04) Magnesium (04/11/17 01:04) Chest 1 View, Ap/Pa Only (04/11/17 01:04) Ekg Tracing (04/11/17 01:04) Cardiac Profile 1 (04/11/17 01:04) Comprehensive Metabolic Panel (04/11/17 01:04) Myoglobin Serum (04/11/17 01:04) Protime With Inr (04/11/17 01:04) Partial Thromboplastin Time (04/11/17 01:04) O2 (04/11/17 01:04) Monitor-Rhythm Ecg Trace Only (04/11/17 01:04) Lipid Panel (04/12/17 06:00) Aspirin Chewable Tablet (Baby Aspirin Ch (04/11/17 01:15) BNP (04/11/17 01:12) Medications Given in ED Current Medications Medications Dose Ordered Sig/Beena Route Start Time Stop Time Status Last Admin Dose Admin Aspirin 324 mg ONCE ONCE PO 10/8/17 01:15 04/11/17 01:16 DC 04/11/17 01:11 324 MG Vital Signs/I&O Vital Sign - Last 12Hours 04/11/17 00:59 Temp 98.7 Pulse 73 Resp 18 B/P (MAP) 120/50 Pulse Ox 95 Blood Pressure Mean: 73 Progress Note : Progress Note Seen and evaluated. IV by EMS. Labs, EKG and chest x-ray ordered. ASA 324 mg by mouth given. Monitor patient. 2119: Patient noted much better. Labs reviewed. Chest x-ray shows some congestion but BNP is not grossly elevated. Patient would like to go home and does not want to stay in the hospital. I did have a long discussion with the patient's family. Discussion included resuscitation status. Overall the and daughters are in agreement that the patient should be DO NOT RESUSCITATE and they do not want to pursue heroic measures for which I agree that CPR would not be in the patient's best interest. They do not have a written statement for this yet and will talk with his primary provider, Dr. Ying this week about establishing a DO NOT RESUSCITATE order. Patient states he feels better and does not want to stay. There is a question of if his defibrillator fired tonight. It would be appropriate to have interrogation of his defibrillator done but I think this would be reasonable to be done in the outpatient setting and he can follow-up with Dr. Mathew this week for that evaluation. Family overall thinks it would be harder on the patient to stay in the hospital and to go home and understand the risk. I agree. Discharged home with return precautions. Family verbalize understanding instructions and agreement with plan. ECG Initial ECG Impression Date: Apr 11, 2017 Initial ECG Impression Time: 01:05 Initial ECG Rate: 112 Comment Atrial fibrillation with paced rhythm. Extreme right axis deviation. Similar to previous of 20 July 2016. No evidence of ST elevation [place]. Interpreted by me. Diagnostic Imaging Diagonstic Imaging: Xray Plain Films/CT/US/NM/MRI: chest Comments Enlarged cardiac silhouette with central vascular congestion. No obvious infiltrate. Reviewed: Reviewed by Me Departure Impression Impression: Primary Impression: Chest pain Qualified Codes: R07.9 - Chest pain, unspecified Additional Impression: CHF (congestive heart failure) Qualified Codes: I50.22 - Chronic systolic (congestive) heart failure Disposition: HOME, SELF-CARE Condition: Stable Departure-Patient Inst. Decision time for Depature: 02:25 Referrals: AARON YING DO (PCP/Family) Primary Care Physician Patient Instructions: Chest Pain (DC), CHF Add. Discharge Instructions: All discharge instructions reviewed with patient and/or family. Voiced understanding. Follow-up with Dr. Ying this week to discuss resuscitation status. Follow- up with Dr. Mathew this week to evaluate defibrillator and to discuss further treatment related to his underlying heart failure. Return for worse pain, fever , vomiting, weakness, breathing problems or other concerns as needed. Continue home medications as previously prescribed. You may give an extra dose of Lasix today and then continue normal dosing. Copy Copies To 1: AARON YING DO Copies To 2: FRANCISCO MATHEW MD FACP FAC GERALD STILL MD Apr 11, 2017 01:25
[2017-04-11 01:31] LABS: ALANINE AMINOTRANSFERASE 13 U/L (0-55); ALBUMIN 3.6 GM/DL (3.2-4.5); ANION GAP 13 MMOL/L (5-14); ASPARTATE AMINO TRANSFERASE 16 U/L (5-34); BILIRUBIN,TOTAL 0.4 MG/DL (0.1-1.0); BLOOD UREA NITROGEN 42 MG/DL (7-18); BUN/CREATININE RATIO 21; CALCIUM 8.7 MG/DL (8.5-10.1); CARBON DIOXIDE 21 MMOL/L (21-32); CHLORIDE 107 MMOL/L (98-107); CREATININE SERUM 1.96 MG/DL (0.60-1.30); GFR ESTIMATED 33; GLUCOSE 107 MG/DL (70-105); MAGNESIUM 2.7 MG/DL (1.8-2.4); SODIUM 141 MMOL/L (135-145); TOTAL PROTEIN 6.6 GM/DL (6.4-8.2)
[2017-04-11 01:38] LABS: MYOGLOBIN SERUM 76.1 NG/ML (10.0-92.0)
[2017-04-11 02:32] VITALS: BP 105/56
--- NOTE | 2017-04-11 08:04 | Diagnostic Imaging Report ---
EXAMINATION: Chest radiograph, portable AP view. DATE: April 11, 2017 at 0123 hours. INDICATION: 86-year-old male, shortness of breath. COMPARISON: July 27, 2016. FINDINGS: There are median sternotomy wires. There is a left-sided cardiac assist device with leads. Stable overall appearance of the cardio mediastinal silhouette. There are lucencies overlying the left lateral midlung and left lower lobe which appears somewhat tubular in shape. There appear to be lung markings coursing through the areas of lucency suggesting this may potentially be artifactual rather than areas of pneumothorax. No apical pneumothorax is identified. There is no identified otherwise noted subcutaneous gas. There is no large pleural effusion. There are mild streaky opacities in the left lower lobe which most likely reflect atelectasis. There is no identified additional interval focal airspace consolidation. IMPRESSION: 1. Lucencies overlying the lateral aspect of the left mid and lower lung which do appear to have lung markings coursing through the areas of lucency. The lucencies also project outside of the chest. Overall findings suggest this is not likely a pneumothorax. Particularly if there is high concern, right lateral decubitus views may be helpful for further assessment. 2. Minimal atelectasis in the left lower lobe. 3. No otherwise identified interval acute cardiopulmonary abnormality. Dictated by: Dictated on workstation # [id number]
== END 2017-04-11 02:32 | disposition home or self-care (01) ==
LOC: EDUNIT# 00:56 → ER 00:58
DX: R07.89 Other chest pain (principal); I11.0 Hypertensive heart disease with heart failure; I50.9 Heart failure, unspecified; J43.9 Emphysema, unspecified; I48.91 Unspecified atrial fibrillation; I42.9 Cardiomyopathy, unspecified; I25.10 Atherosclerotic heart disease of native coronary artery without angina pectoris; I25.2 Old myocardial infarction; E78.00 Pure hypercholesterolemia, unspecified; E03.9 Hypothyroidism, unspecified; F03.90 Unspecified dementia, unspecified severity, without behavioral disturbance, psychotic disturbance, mood disturbance, and anxiety; F17.210 Nicotine dependence, cigarettes, uncomplicated; Z95.1 Presence of aortocoronary bypass graft; Z87.19 Personal history of other diseases of the digestive system; Z86.73 Personal history of transient ischemic attack (TIA), and cerebral infarction without residual deficits; Z85.828 Personal history of other malignant neoplasm of skin; Z82.49 Family history of ischemic heart disease and other diseases of the circulatory system; Z95.810 Presence of automatic (implantable) cardiac defibrillator; Z79.01 Long term (current) use of anticoagulants; Z79.82 Long term (current) use of aspirin
CPT/HCPCS: 36415; 71010; 80053; 83735; 83874; 83880; 84484; 85025; 85610; 85730; 93005

== ENCOUNTER → 2017-04-22 | Outpatient (CLI) | payer MEDICARE | LOC: ONC 16:09 | PROVIDERS: ATTEND Internal Medicine Hematology & Oncology | DX: Z08 Encounter for follow-up examination after completed treatment for malignant neoplasm (principal); Z85.820 Personal history of malignant melanoma of skin; J44.9 Chronic obstructive pulmonary disease, unspecified; F17.210 Nicotine dependence, cigarettes, uncomplicated; E78.5 Hyperlipidemia, unspecified; E03.9 Hypothyroidism, unspecified; I51.9 Heart disease, unspecified; Z95.810 Presence of automatic (implantable) cardiac defibrillator; Z79.01 Long term (current) use of anticoagulants; Z79.899 Other long term (current) drug therapy | CPT/HCPCS: 99213 ==

== ENCOUNTER → 2018-12-20 | Outpatient (CLI) | payer MEDICARE ==
[~2018-12-20] MED LIST changes: -METO-270 PO; +METO-387 PO
[2018-12-20 12:55] LABS: MEAN PLATELET VOLUME 10.3 FL (7.4-10.4); RED CELL DISTRIBUTION WIDTH 13.9 % (10.0-14.5); WHITE BLOOD COUNT 9.2 10^3/uL (4.3-11.0)
[2018-12-20 13:05] LABS: CALCIUM 8.8 MG/DL (8.5-10.1); CREATININE SERUM 1.39 MG/DL (0.60-1.30); POTASSIUM 4.2 MMOL/L (3.6-5.0)
--- NOTE | 2018-12-20 13:27 | Diagnostic Imaging Report ---
INDICATION: Left rib trauma. TIME OF EXAM: 12:53 p.m. COMPARISON: Comparison is made with prior chest from 04/11/2017. FINDINGS: The heart remains enlarged. There are changes of median sternotomy and CABG. Cardiac defibrillator remains in place. Lungs appear to be fairly clear. No definite parenchymal contusion is seen. There is no effusion or pneumothorax. Minimal scarring in the lung bases noted. Bony structures are unremarkable. IMPRESSION: No acute abnormality is detected. Dictated by: Dictated on workstation # [id number]
--- NOTE | 2018-12-20 13:32 | Diagnostic Imaging Report ---
INDICATION: Weakness and left rib trauma. TIME OF EXAM: 12:54 PM Multiple views of left ribs were obtained. FINDINGS: There appear to be nondisplaced fractures involving anterior left eighth and ninth ribs. No parenchymal contusion, effusion or pneumothorax is seen. IMPRESSION: Left anterior eighth and ninth rib fractures. Dictated by: Dictated on workstation # [id number]
== END ==
LOC: RAD 12:31
PROVIDERS: ATTEND Family Medicine
DX: S22.42XA Multiple fractures of ribs, left side, initial encounter for closed fracture (principal); N28.9 Disorder of kidney and ureter, unspecified; Z95.1 Presence of aortocoronary bypass graft; Z95.810 Presence of automatic (implantable) cardiac defibrillator
CPT/HCPCS: 36415; 71046; 71100; 80048; 85027

== ENCOUNTER 2019-03-23 17:30 | Emergency (ER) | payer MEDICARE ==
[~2019-03-23] VITALS: Ht 175.2 cm; Wt 49.5 kg
[2019-03-23] MEDS ORDERED: TETANUS,DIPTH,PERTUSS P/F (BOOSTRIX) 0.5 ML VIAL IM ONE ×2 (17:32→17:45)
--- NOTE | 2019-03-23 17:43 | ED Fall/Injury ---
General Chief Complaint: Trauma-Non Activation Stated Complaint: FALL Nursing Triage Note: FALL Source: patient, EMS Exam Limitations: no limitations History of Present Illness Date Seen by Provider: Mar 23, 2019 Time Seen by Provider: 17:41 Initial Comments To ER per EMS from Dr. Opal loo [facility] (visitor services technician) where he tripped and fell, abrasion to the right shoulder elbow wrist and forehead. She is demented at baseline Location Injury Occurred: DR OWUSU OFFICE Occurred: just prior to arrival Severity: moderate Injuries/Pain Location: head, face Context: slipped Loss of Consciousness: no loss of consciousness Associated Symptoms (Fall): Denies Symptoms Allergies and Home Medications Allergies Coded Allergies: No Known Drug Allergies (Verified , 06/12/08) Home Medications Albuterol Sulfate 18 Gm Hfa.aer.ad, 1-2 PUFF IH Q6H Prescribed by: BETTY PENNY on 07/20/16 1405 Apixaban 5 Mg Tablet, 5 MG PO BID, (Reported) Aspirin 81 Mg Chew, 81 MG PO HS, (Reported) Atorvastatin Calcium 10 Mg Tablet, 10 MG PO DAILY, (Reported) Furosemide 20 Mg Tablet, 20 MG PO DAILY, (Reported) Levothyroxine Sodium 100 Mcg Tablet, 100 MCG PO DAILY, (Reported) Lisinopril 20 Mg Tablet, 20 MG PO DAILY, (Reported) Metoprolol Succinate 25 Mg Tab.er.24h, 25 MG PO DAILY, (Reported) Mupirocin 22 Gm Oint...g., TP BID, (Reported) Patient Home Medication List Home Medication List Reviewed: Yes Review of Systems Review of Systems Constitutional: see HPI Eyes: No Symptoms Reported Ears, Nose, Mouth, Throat: no symptoms reported Respiratory: no symptoms reported Cardiovascular: no symptoms reported Genitourinary: no symptoms reported Musculoskeletal: see HPI Skin: see HPI Past Cqstetk-Adfvnp-Cqgnpr Hx Patient Social History Alcohol Use: Denies Use Recreational Drug Use: No Smoking Status: Former Smoker Type Used: Cigarettes Recent Foreign Travel: No Contact w/Someone Who Travel: No Recent Hopitalizations: No Physical Abuse: No Sexual Abuse: No Mistreated: No Immunizations Up To Date Tetanus Booster (TDap): Unknown PED Vaccines UTD: Yes Date of Pneumonia Vaccine: Mar 05, 2012 Date of Influenza Vaccine: Mar 16, 2016 Seasonal Allergies Seasonal Allergies: No Past Medical History Surgeries: Yes (HEART BYPASS) Cardiac, CABG, Defibrillator, Pacemaker Respiratory: No COPD, Emphysema Currently Using CPAP: No Currently Using BIPAP: No Cardiac: Yes (Tricuspid Valve Dz, Hx PVT, RBBB, SA Dysfunction) Atrial Fibrillation, Cardiomyopathy, Coronary Artery Disease, Heart Attack, High Cholesterol, Hypertension, Valvular Heart Disease 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) Dementia, Stroke Reproductive Disorders: No Sexually Transmitted Disease: No HIV/AIDS: No Gastrointestinal: Yes Floers's Esophagus, Esophagitis Musculoskeletal: Yes (MELANOMA ON HIS TOE STAGE 3 ABOUT @ 20 YRS AGO) Arthritis Endocrine: Yes Hypothyroidsim Cataract Loss of Vision: Denies Hearing Impairment: Hard of Hearing, Bilateral Hearing Aide Cancer: Yes Melanoma Psychosocial: No (probable dementia) Integumentary: No Blood Disorders: No Adverse Reaction/Blood Tranf: No Family Medical History Alcoholism G8 BROTHER Cardiovascular disease 19 FATHER, Onset:40's - 50 Diabetes mellitus 19 MOTHER, Onset:40's - 50 Hypercholesterolemia 19 MOTHER Hypertension 19 FATHER 19 MOTHER Myocardial infarction 19 FATHER No Family History of: AIDS Abdominal aortic aneurysm Ok's disease Alzheimer's disease Aphasia Arthritis Asthma Cancer of mouth Cataracts Colon cancer Completed stroke Congenital disease Congenital heart disease Coronary thrombosis Cystic fibrosis Deafness or hearing loss Dementia Drug abuse Dysphasia Fibrocystic disease of breast Gastroenteritis Glaucoma Headache disorder Infertility Kidney disease Neoplasm Not obtainable due to adoption Osteoporosis Parkinson's disease Prostate cancer Psychosocial problem Respiratory disorder Seizure disorder Severe allergy Thyroid disease Tuberculosis Visual disorder Physical Exam Vital Signs Vital Signs - First Documented 03/23/19 17:30 Temp 37.1 Pulse 75 Resp 17 B/P (MAP) 110/52 (71) Pulse Ox 96 O2 Delivery Room Air Capillary Refill : Height, Weight, BMI Height: 5'10" Weight: 125lbs. 8.0oz. [id number]; 18.4 BMI Method:Stated General Appearance: WD/WN, no apparent distress HEENT: PERRL/EOMI, normal ENT inspection Neck: non-tender, full range of motion Respiratory: no respiratory distress, no accessory muscle use Gastrointestinal: normal bowel sounds, soft Neurologic/Psychiatric: alert Skin: normal color, warm/dry, other (skin tears to the right shoulder elbow wrist and forehead) [place] Coma Score Best Eye Response: (4) Open Spontaneously Best Verbal Response: (4) Confused Conversation Best Motor Response: (6) Obeys Commands Kirti Total: 14 Progress/Results/Core Measures Results/Orders My Orders Orders - DAVI CLARK APRN Ct Head/Cervical Spine Wo (03/23/19 17:39) Elbow, Right, 3 Views (03/23/19 17:39) Dipht,Pertuss(Acell),Tet Adult (Boostrix (03/23/19 17:45) Dipht,Pertuss(Acell),Tet Adult (Boostrix (03/23/19 17:32) Vital Signs/I&O 03/23/19 17:30 Temp 37.1 Pulse 75 Resp 17 B/P (MAP) 110/52 (71) Pulse Ox 96 O2 Delivery Room Air Departure Impression Primary Impression: Skin abrasion Additional Impression: Fall Qualified Codes: W19.XXXA - Unspecified fall, initial encounter Disposition: HOME, SELF-CARE Condition: Stable Departure-Patient Inst. Decision time for Depature: 18:33 Referrals: AARON YING DO (PCP/Family) Primary Care Physician Patient Instructions: Skin Abrasions Add. Discharge Instructions: 1. Return to ER for any concerns 2. Follow-up with your doctor next week 3. All discharge instructions reviewed with patient and/or family. Voiced understanding. DAVI CLARK APRN Mar 23, 2019 17:42
--- NOTE | 2019-03-23 18:30 | Diagnostic Imaging Report ---
PROCEDURE: CT head and CT cervical spine without contrast. TECHNIQUE: Multiple contiguous axial images were obtained through the brain and cervical spine without the use of intravenous contrast. Sagittal and coronal reformations through the cervical spine were then performed. Auto Exposure Controls were utilized during the CT exam to meet ALARA standards for radiation dose reduction. INDICATION: Fall with head and neck injury. FINDINGS: CT head: Comparison is made to study of 07/27/2016. Examination is limited by motion. Ventricles and sulci are diffusely prominent with low density in the cerebral white matter and left insula. There is no evidence of hemorrhage. There is no abnormal mass effect or shift of midline structures. Calvarium is intact and the visualized paranasal sinuses are clear. IMPRESSION: Senescent findings of brain without acute intracranial abnormality detected. CT cervical spine: Comparison is made to study of 03/23/2019. There is straightening of normal cervical lordosis. Diffuse disc space narrowing and degenerative facet arthropathy are similar to previous study. There is no evidence of acute fracture or subluxation. No paraspinous hematoma is identified. IMPRESSION: Cervical spondylosis without CT evidence of acute cervical spinal abnormality. Dictated by: Dictated on workstation # [id number]
--- NOTE | 2019-03-23 18:31 | Diagnostic Imaging Report ---
INDICATION: Fall with right elbow injury and pain. EXAMINATION: AP, oblique and lateral views of the right elbow are obtained. COMPARISON: There is no previous study for comparison. FINDINGS: Study is somewhat limited due to positioning, however, no definite fracture or malalignment is identified. Lateral image rotation limits evaluation for joint fluid or hemarthrosis. IMPRESSION: No definite acute abnormalities identified on limited exam. Dictated by: Dictated on workstation # [id number]
[2019-03-23 18:42] VITALS: BP 112/59
== END 2019-03-23 18:42 | disposition home or self-care (01) ==
LOC: EDUNIT# 17:36 → ER 17:37
DX: S40.211A Abrasion of right shoulder, initial encounter (principal); S50.311A Abrasion of right elbow, initial encounter; S60.811A Abrasion of right wrist, initial encounter; S00.81XA Abrasion of other part of head, initial encounter; I10 Essential (primary) hypertension; I25.2 Old myocardial infarction; I48.91 Unspecified atrial fibrillation; I25.10 Atherosclerotic heart disease of native coronary artery without angina pectoris; J43.9 Emphysema, unspecified; E78.00 Pure hypercholesterolemia, unspecified; F03.90 Unspecified dementia, unspecified severity, without behavioral disturbance, psychotic disturbance, mood disturbance, and anxiety; E03.9 Hypothyroidism, unspecified; R40.2142 Coma scale, eyes open, spontaneous, at arrival to emergency department; R40.2242 Coma scale, best verbal response, confused conversation, at arrival to emergency department; R40.2362 Coma scale, best motor response, obeys commands, at arrival to emergency department; Z85.820 Personal history of malignant melanoma of skin; Z79.01 Long term (current) use of anticoagulants; Z86.73 Personal history of transient ischemic attack (TIA), and cerebral infarction without residual deficits; Z79.82 Long term (current) use of aspirin; Z87.891 Personal history of nicotine dependence; Z95.810 Presence of automatic (implantable) cardiac defibrillator; Z95.1 Presence of aortocoronary bypass graft; Z82.49 Family history of ischemic heart disease and other diseases of the circulatory system; W01.0XXA Fall on same level from slipping, tripping and stumbling without subsequent striking against object, initial encounter; Y92.481 Parking lot as the place of occurrence of the external cause
CPT/HCPCS: 70450; 72125; 73080

== ENCOUNTER 2020-01-30 10:30 | Emergency (ER) | payer MEDICARE ==
[~2020-01-30] VITALS: Ht 170 cm; Wt 54.4 kg
[~2020-01-30 10:30] MED LIST changes: -METO-387 PO; +MTP25TSR PO
--- NOTE | 2020-01-30 10:45 | ED Cough/URI ---
General Stated Complaint: UNRESPONSIVE History of Present Illness Date Seen by Provider: Jan 30, 2020 Time Seen by Provider: 10:45 Initial Comments 89-year-old male brought in by ALS for decreased responsiveness. Patient has had a decline over the last couple months per family. Patient is having some mild shortness of breath and just not responding to his normal responsiveness. Patient himself does not provide me any information. I did call and discuss with his . She reports that he has severe dementia has been worsening and this morning he did not respond the way he normally does and she wanted to have him evaluated. Allergies and Home Medications Allergies Coded Allergies: No Known Drug Allergies (Verified , 06/12/08) Home Medications Albuterol Sulfate 18 Gm Hfa.aer.ad, 1-2 PUFF IH Q6H Prescribed by: BETTY PENNY on 07/20/16 1405 Apixaban 5 Mg Tablet, 5 MG PO BID, (Reported) Aspirin 81 Mg Chew, 81 MG PO HS, (Reported) Atorvastatin Calcium 10 Mg Tablet, 10 MG PO DAILY, (Reported) Furosemide 20 Mg Tablet, 20 MG PO DAILY, (Reported) Levothyroxine Sodium 100 Mcg Tablet, 100 MCG PO DAILY, (Reported) Lisinopril 20 Mg Tablet, 20 MG PO DAILY, (Reported) Metoprolol Succinate 25 Mg Tab.er.24h, 25 MG PO DAILY, (Reported) Mupirocin 22 Gm Oint...g., TP BID, (Reported) Patient Home Medication List Home Medication List Reviewed: Yes Review of Systems Review of Systems Constitutional: see HPI Respiratory: short of breath Unable to obtain based on patient's dementia and clinical presentation Past Mqypjgq-[id number]-Qlwzsk Hx Past Med/Social Hx: Reviewed Nursing Past Med/Soc Hx Patient Social History Type Used: Cigarettes Recent Hopitalizations: No Immunizations Up To Date Tetanus Booster (TDap): Unknown PED Vaccines UTD: Yes Date of Pneumonia Vaccine: Mar 05, 2012 Date of Influenza Vaccine: Mar 16, 2016 Seasonal Allergies Seasonal Allergies: No Past Medical History Surgeries: Yes (HEART BYPASS) Cardiac, CABG, Defibrillator, Pacemaker Respiratory: No COPD, Emphysema Currently Using CPAP: No Currently Using BIPAP: No Cardiac: Yes (Tricuspid Valve Dz, Hx PVT, RBBB, SA Dysfunction) Atrial Fibrillation, Cardiomyopathy, Coronary Artery Disease, Heart Attack, High Cholesterol, Hypertension, Valvular Heart Disease 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) Dementia, Stroke Reproductive Disorders: No Sexually Transmitted Disease: No HIV/AIDS: No Gastrointestinal: Yes Flores's Esophagus, Esophagitis Musculoskeletal: Yes (MELANOMA ON HIS TOE STAGE 3 ABOUT @ 20 YRS AGO) Arthritis Endocrine: Yes Hypothyroidsim Cataract Loss of Vision: Denies Hearing Impairment: Hard of Hearing, Bilateral Hearing Aide Cancer: Yes Melanoma Psychosocial: No (probable dementia) Integumentary: No Blood Disorders: No Adverse Reaction/Blood Tranf: No Family Medical History Alcoholism G8 BROTHER Cardiovascular disease 19 FATHER, Onset:40's - 50 Diabetes mellitus 19 MOTHER, Onset:40's - 50 Hypercholesterolemia 19 MOTHER Hypertension 19 FATHER 19 MOTHER Myocardial infarction 19 FATHER No Family History of: AIDS Abdominal aortic aneurysm [place]'s disease Alzheimer's disease Aphasia Arthritis Asthma Cancer of mouth Cataracts Colon cancer Completed stroke Congenital disease Congenital heart disease Coronary thrombosis Cystic fibrosis Deafness or hearing loss Dementia Drug abuse Dysphasia Fibrocystic disease of breast Gastroenteritis Glaucoma Headache disorder Infertility Kidney disease Neoplasm Not obtainable due to adoption Osteoporosis Parkinson's disease Prostate cancer Psychosocial problem Respiratory disorder Seizure disorder Severe allergy Thyroid disease Tuberculosis Visual disorder Physical Exam Vital Signs - First Documented 01/30/20 10:30 Temp 37.1 Pulse 92 Resp 16 B/P (MAP) 124/97 (106) Pulse Ox 97 Capillary Refill : Height: 5'10" Weight: 125lbs. 8.0oz. [id number]; 16.00 BMI Method:Stated General Appearance: cachetic, thin Respiratory: no accessory muscle use, rhonchi, other (audible wheezing) Cardiovascular: regular rate, rhythm Gastrointestinal: soft Neurologic/Psychiatric: other (unable to evaluate, patient decreased responsive and severe dementia) Progress/Results/Core Measures Suspected Sepsis SIRS Temperature: Pulse: Respiratory Rate: Laboratory Tests 01/30/20 10:36: White Blood Count 9.6 Blood Pressure / Mean: Laboratory Tests 01/30/20 10:36: Creatinine 1.76H, Platelet Count 178, Total Bilirubin 0.9 Results/Orders Lab Results Laboratory Tests Test 01/30/20 10:36 Range/Units White Blood Count 9.6 4.3-11.0 10^3/uL Red Blood Count 4.24 L 4.35-5.85 10^6/uL Hemoglobin 13.2 L 13.3-17.7 G/DL Hematocrit 40 40-54 % Mean Corpuscular Volume 94 80-99 FL Mean Corpuscular Hemoglobin 31 25-34 PG Mean Corpuscular Hemoglobin Concent 33 32-36 G/DL Red Cell Distribution Width 15.0 H 10.0-14.5 % Platelet Count 178 130-400 10^3/uL Mean Platelet Volume 10.9 H 7.4-10.4 FL Neutrophils (%) (Auto) 66 42-75 % Lymphocytes (%) (Auto) 10 L 12-44 % Monocytes (%) (Auto) 24 H 0-12 % Eosinophils (%) (Auto) 0 0-10 % Basophils (%) (Auto) 0 0-10 % Neutrophils # (Auto) 6.3 1.8-7.8 X 10^3 Lymphocytes # (Auto) 0.9 L 1.0-4.0 X 10^3 Monocytes # (Auto) 2.3 H 0.0-1.0 X 10^3 Eosinophils # (Auto) 0.0 0.0-0.3 10^3/uL Basophils # (Auto) 0.0 0.0-0.1 10^3/uL Neutrophils % (Manual) 76 % Lymphocytes % (Manual) 5 % Monocytes % (Manual) 17 % Eosinophils % (Manual) 0 % Basophils % (Manual) 0 % Band Neutrophils 2 % Anisocytosis SLIGHT Sodium Level 140 135-145 MMOL/L Potassium Level 5.0 3.6-5.0 MMOL/L Chloride Level 110 H 98-107 MMOL/L Carbon Dioxide Level 17 L 21-32 MMOL/L Anion Gap 13 5-14 MMOL/L Blood Urea Nitrogen 34 H 7-18 MG/DL Creatinine 1.76 H 0.60-1.30 MG/DL Estimat Glomerular Filtration Rate 37 BUN/Creatinine Ratio 19 Glucose Level 103 70-105 MG/DL Calcium Level 8.2 L 8.5-10.1 MG/DL Corrected Calcium 8.4 L 8.5-10.1 MG/DL Total Bilirubin 0.9 0.1-1.0 MG/DL Aspartate Amino Transf (AST/SGOT) 43 H 5-34 U/L Alanine Aminotransferase (ALT/SGPT) 22 0-55 U/L Alkaline Phosphatase 83 40-136 U/L B-Type Natriuretic Peptide 1067.2 H <100.0 PG/ML Total Protein 7.0 6.4-8.2 GM/DL Albumin 3.7 3.2-4.5 GM/DL My Orders Orders - ZE CARLSON DO Chest 1 View, Ap/Pa Only (01/30/20 10:46) Cbc With Automated Diff (01/30/20 10:46) Comprehensive Metabolic Panel (01/30/20 10:46) Albuterol/Ipra Inhalation Soln (Duoneb I (01/30/20 11:00) Svn Small Volume Nebulizer (01/30/20 10:46) Manual Differential (01/30/20 10:36) Rx-Albuterol Inhaler (Rx-Ventolin Hfa In (01/30/20 12:08) Furosemide Injection (Lasix Injection) (01/30/20 12:30) BNP (01/30/20 12:50) Medications Given in ED Current Medications Medications Dose Ordered Sig/Beena Route Start Time Stop Time Status Last Admin Dose Admin Furosemide 40 mg ONCE ONCE IVP 01/30/20 12:30 01/30/20 12:31 DC 01/30/20 12:38 40 MG Vital Signs/I&O 01/30/20 10:30 Temp 37.1 Pulse 92 Resp 16 B/P (MAP) 124/97 (106) Pulse Ox 97 Capillary Refill : Progress Note : Time: 13:19 Progress Note Patient with severe dementia with significant recent decline. Patient has worsening congestive heart failure and pulmonary edema at this time. Patient was given 40 Lasix IV in the ER. I called and discussed results with patient's . At this time patient does not want him to be aggressively treated. After discussing hospitalization versus home with palliative care hospice. Patient's felt that he would not want a lot of aggressive treatment and is end-of-life is rapidly declining. We will discharge him home at this time. I did call and discuss with his primary care provider Dr. Ying who will help arrange hospice. Patient is discharged home in stable condition Departure Impression Primary Impression: CHF (congestive heart failure) Qualified Codes: I50.9 - Heart failure, unspecified Additional Impression: Dementia Qualified Codes: F03.90 - Unspecified dementia without behavioral disturbance Disposition: 01 HOME, SELF-CARE Condition: Stable Departure-Patient Inst. Referrals: AARON YING DO (PCP/Family) Primary Care Physician Patient Instructions: Medical Care During Advanced Illness, Palliative Care Add. Discharge Instructions: Follow-up with Dr. Ying to help arrange for palliative care ZE CARLSON DO Jan 30, 2020 10:45
[2020-01-30] MEDS ORDERED: RT-ALBUTEROL/IPRATROPIUM 3 ML (DUONEB) VIAL INH ONE (11:00)
[2020-01-30 11:02] LABS: BASOPHILS % (AUTO) 0 % (0-10); EOSINOPHILS % (AUTO) 0 % (0-10); HEMATOCRIT 40 % (40-54); HEMOGLOBIN 13.2 G/DL (13.3-17.7); LYMPHOCYTES # (AUTO) 0.9 X 10^3 (1.0-4.0); LYMPHOCYTES % (AUTO) 10 % (12-44); MEAN CORPUSCULAR HEMOGLOBIN 31 PG (25-34); MEAN CORPUSCULAR HGB CONC 33 G/DL (32-36); MEAN CORPUSCULAR VOLUME 94 FL (80-99); MEAN PLATELET VOLUME 10.9 FL (7.4-10.4); MONOCYTES # (AUTO) 2.3 X 10^3 (0.0-1.0); MONOCYTES % (AUTO) 24 % (0-12); NEUTROPHILS # (AUTO) 6.3 X 10^3 (1.8-7.8); NEUTROPHILS % (AUTO) 66 % (42-75); PLATELET COUNT 178 10^3/uL (130-400); WHITE BLOOD COUNT 9.6 10^3/uL (4.3-11.0)
[2020-01-30 11:20] LABS: ALBUMIN 3.7 GM/DL (3.2-4.5)
[2020-01-30 11:22] LABS: CALCIUM 8.2 MG/DL (8.5-10.1)
[2020-01-30 11:25] LABS: BILIRUBIN,TOTAL 0.9 MG/DL (0.1-1.0)
[2020-01-30 11:27] LABS: CREATININE SERUM 1.76 MG/DL (0.60-1.30)
[2020-01-30 12:00] LABS: ANISOCYTOSIS SLIGHT; BAND NEUTROPHILS 2 %; BASOPHILS % (MANUAL) 0 %; EOSINOPHILS % (MANUAL) 0 %; LYMPHOCYTES % (MANUAL) 5 %; MONOCYTES % (MANUAL) 17 %; NEUTROPHILS % (MANUAL) 76 %
[2020-01-30] MEDS ORDERED: RX-ALBUTEROL INHALER 8 GM HFA (VENTOLIN) IH STA (12:08)
--- NOTE | 2020-01-30 12:18 | Diagnostic Imaging Report ---
INDICATION: Unresponsive. COMPARISON: 12/20/2018. FINDINGS: Enlargement of the cardiac silhouette has not appreciably changed in magnitude or configuration, however there is increased caliber of the upper lobe pulmonary veins as well as new Lb Bs and probable interstitial edema. No apparent pleural fluid. IMPRESSION: Likely venous congestion and interstitial edema with similar magnitude cardiomegaly. Dictated by: Dictated on workstation # [id number]
[2020-01-30] MEDS ORDERED: FUROSEMIDE 40 MG/4 ML INJ (LASIX) IVP ONE (12:30)
--- NOTE | 2020-01-30 14:25 | NUR ---
PT NOTIFIED TO PT CURRENT CONDITION AND PLANS TO DISCHARGE HOME. PT INFORMED OF TIME NEEDED TO ARRANGE FOR TRANSPORT OF PT HOME PT IS ESENTIALLY BED BOUND
--- NOTE | 2020-01-30 15:53 | NUR ---
1442- [facility] shift captain called regarding pt trasnport home. 1445- [facility] contacted for pt transport home. 1539- [facility] contacted about EMS ETA. reports "they should be there, it shows they got there 10 minutes ago."
[2020-01-30 16:10] VITALS: BP 116/87
== END 2020-01-30 16:10 | disposition home or self-care (01) ==
LOC: EDUNIT# 10:30 → ER 10:32
DX: I11.0 Hypertensive heart disease with heart failure (principal); I50.9 Heart failure, unspecified; F03.90 Unspecified dementia, unspecified severity, without behavioral disturbance, psychotic disturbance, mood disturbance, and anxiety; I48.91 Unspecified atrial fibrillation; I25.2 Old myocardial infarction; E78.00 Pure hypercholesterolemia, unspecified; I25.10 Atherosclerotic heart disease of native coronary artery without angina pectoris; J43.9 Emphysema, unspecified; E03.9 Hypothyroidism, unspecified; Z79.890 Hormone replacement therapy; Z79.01 Long term (current) use of anticoagulants; Z86.73 Personal history of transient ischemic attack (TIA), and cerebral infarction without residual deficits; Z79.82 Long term (current) use of aspirin; Z95.1 Presence of aortocoronary bypass graft; Z95.810 Presence of automatic (implantable) cardiac defibrillator; Z85.820 Personal history of malignant melanoma of skin; Z82.49 Family history of ischemic heart disease and other diseases of the circulatory system
CPT/HCPCS: 36415; 71045; 80053; 83880; 85007; 85027